=== PATIENT | male | born 1960 | race Caucasian/White ===

== ENCOUNTER 2023-05-23 13:05 | Emergency (ER) | payer MEDICARE, SELFPAY ==
--- NOTE | 2023-05-23 13:10 | ED.SKABFB ---
HPI - Skin/Abscess/Foreign Bdy General Chief complaint: Skin/Abscess/Foreign Body Stated complaint: Insect Bite Source: patient and RN notes reviewed History of Present Illness HPI narrative: 63-year-old male presents to urgent care complaints of a tick bite to his right groin. Patient states he 1st noticed this tick early Sunday morning and picked it off. Patient believes he may have gotten this tick on [place] Patient states this morning he noticed a red streak extending from the tick bite down his groin. Patient reports associated itching. Denies any pain. Denies any fevers, chills, or vomiting. Denies any chest pain or shortness of breath. Related Data Home Medications Medication Instructions Recorded Confirmed gabapentin 600 mg tablet 600 mg PO BID 05/23/23 05/23/23 lisinopril 10 1 tablet PO DAILY 05/23/23 05/23/23 mg-hydrochlorothiazide 12.5 mg tablet rosuvastatin 20 mg tablet 20 mg PO DAILY 05/23/23 05/23/23 Allergies Allergy/AdvReac Type Severity Reaction Status Date / Time No Known Allergies Allergy Unknown Verified 05/23/23 13:23 Review of Systems Review of Systems: CONSTITUTIONAL: Denies fever, chills, or sweats. EYES: Denies visual changes, redness, or discharge. ENT: Denies otalgia and sore throat CARDIOVASCULAR: Denies chest pain, palpitations, or edema. RESPIRATORY: Denies cough or dyspnea. GASTROINTESTINAL: Denies abdominal pain, nausea, vomiting, or diarrhea. GENITOURINARY: Denies dysuria or hematuria. SKIN: Red rash to right groin MUSCULOSKELETAL: Denies back pain, joint pain, or myalgia. NEUROLOGIC: Denies headache, numbness, or weakness. Pertinent positives per HPI. PMFSH Social History Social History Second hand tobacco smoke exposure: No Alcohol intake: current Comments At the time of my signature, I reviewed and agree with the nursing past medical, surgical, social, and family history. There is no relevant family history pertinent to the patient complaint. Exam Narrative: GENERAL: This is a well-nourished, well-developed patient, in no apparent distress. HEAD: normocephalic, atraumatic. EYES: Sclera clear/white. Vision is grossly intact. EARS: External ears normal, auditory canals clear and without drainage. Hearing grossly intact. NOSE: External nose normal with no obvious nasal discharge, nares without redness, no rhinorrhea. THROAT: Mucous membranes moist, posterior pharynx clear. NECK: Neck supple, non-tender without lymphadenopathy, masses or thyromegaly. CARDIOVASCULAR: Regular rate RESPIRATORY: No respiratory distress SKIN: ERythremic lesion extending from original tick bite to right groin. the streak of a lesion extends inferiorly, down the groin, approximately 5 cm in length. NEURO: awake, alert, and oriented to person, place and time. There were no obvious focal neurologic abnormalities. EXTREMITIES: No clubbing, cyanosis, or edema. No joint tenderness, effusion, or edema noted. BACK: Nontender without deformity or crepitus. No flank tenderness. Course Course Level of Care: Express Care Visit Vital Signs Vital signs: Vital Signs Temperature 98.3 F 05/23/23 13:20 Pulse Rate 99 05/23/23 13:20 Respiratory Rate 16 05/23/23 13:20 Blood Pressure 145/86 H 05/23/23 13:20 Pulse Oximetry 99 05/23/23 13:20 Oxygen Delivery Room Air 05/23/23 13:20 Temperature 98.3 F 05/23/23 13:24 Pulse Rate 99 05/23/23 13:24 Respiratory Rate 16 05/23/23 13:24 Blood Pressure 145/86 H 05/23/23 13:24 Pulse Oximetry 99 05/23/23 13:24 Oxygen Delivery Room Air 05/23/23 13:24 reviewed MDM - Skin/Abscess/Foreign Bdy MDM Narrative Medical decision making narrative: Take the antibiotics as directed. If you develop any new or worsening symptoms, go to the ER for further evaluation. Differential Diagnosis Differential diagnosis: Likely cellulitis, insect bites and contact dermatitis Critical Care Time
[2023-05-23 13:20] VITALS: BP 145/86; PULSE 99; RESP 16; TEMP 36.8; O2SAT 99
[2023-05-23 13:24] VITALS: BP 145/86; PULSE 99; RESP 16; TEMP 36.8; O2SAT 99
== END 2023-05-23 14:00 | disposition home or self-care (01) ==
PROVIDERS: Emergency Provider Nurse Practitioner Family
DX: S30.860A Insect bite (nonvenomous) of lower back and pelvis, initial encounter (principal); W57.XXXA Bitten or stung by nonvenomous insect and other nonvenomous arthropods, initial encounter; E78.00 Pure hypercholesterolemia, unspecified; I10 Essential (primary) hypertension; Z85.038 Personal history of other malignant neoplasm of large intestine; Z92.21 Personal history of antineoplastic chemotherapy; G62.9 Polyneuropathy, unspecified
CPT/HCPCS: 99203; G0463

== ENCOUNTER 2024-10-03 15:40 | Emergency (ER) | payer OTHER, SELFPAY ==
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
[2024-10-03 15:40] VITALS: BP 174/99; PULSE 102; RESP 20; TEMP 36.8; O2SAT 98
--- OUTSIDE RECORDS SUMMARY | 2024-10-03 15:55 | XMS_ITS | Clinical Summary ---
Author Organization [facility] Address [address], [address] [address] Phone Care Team Providers Care Gas Engine Operator Generators Name Role Phone Guillermo Miranda MD Primary Care Provider [phone] Jace Rose MD Unavailable [phone] Sp Leary MD Unavailable [phone] Allergies No known active allergies Medications rosuvastatin (CRESTOR) 20 MG Tablet TAKE 1 TABLET BY MOUTH ONCE DAILY 3 07/19/2019 Active lisinopril (PRINIVIL, ZESTRIL) 20 MG Tablet Take 20 mg by mouth every morning. Active Cholecalciferol (Vitamin D) 2000 UNIT Tablet Take by mouth. Active Omeprazole Magnesium 20 MG Tablet Delayed Response Take 20 mg by mouth daily. Active vitamin B complex (DEXFOL) Tablet Take 1 Tablet by mouth daily. 90 Tablet 3 03/14/2022 Active Cyanocobalamin (VITAMIN B-12 PO) Take by mouth. Active Ibuprofen (Advil) 200 MG Capsule Take by mouth. Active aspirin EC 81 MG Tablet Delayed Response Take 81 mg by mouth daily. Active gabapentin (NEURONTIN) 600 MG Tablet Take 1 Tablet by mouth 3 times daily. 270 Tablet 3 11/29/2023 Active Active Problems Problem Noted Date Diagnosed Date Enlarged prostate 08/10/2020 Elevated LFTs 02/02/2020 Drug-induced polyneuropathy 04/02/2019 High blood pressure 02/19/2019 Lung nodule 01/22/2019 Primary colon cancer with me tastasis to 7 or more regional lymph nodes (N2b) 11/13/2018 Liver lesion 11/13/2018 Adenocarcinoma, colon 10/30/2018 Status post right hemicolectomy 10/10/2018 Resolved Problems Problem Noted Date Diagnosed Date Resolved Date Chemotherapy induced diarrhea 02/19/2019 07/31/2019 Muscle cramping 01/22/2019 07/31/2019 Colonic mass 10/08/2018 03/10/2019 Encounters Date Type Department Care Team Description 10/01/2024 8:56 AM LOCK TECHNICIAN - 10/01/2024 11:59 PM LOCK TECHNICIAN Hospital Encounter [facility] Diagnostic Radiology [address] [place] [address] Guillermo Miranda MD Discharge Disposition: Discharged to home or Selfcare 10/01/2024 Travel 09/18/2024 Telephone [facility] [address] [place] [address] Brunilda Doshi APRN, SANITIZER 09/18/2024 Transcribe [facility] Sched[facility] [address] [place] [address] Guillermo Miranda MD Left shoulder pain, unspecified chronicity (Primary Dx) from Last 3 Months Family History Medical History Relation Name Comments Cancer Maternal Aunt colon Cancer Other P cousin colon Relation Name Status Comments Father Alive Maternal Aunt Mother Alive Other P cousin Alive Social History Tobacco Use Types Packs/Day Years Used Date Smoking Tobacco: Former Cigarettes 1 20 0 09/1998 - 09/2018 Smokeless Tobacco: Former Chew Quit: 1991 Tobacco Cessation:Counseling Given: Not Answered Comments:10/07/18 quit Alcohol Use Standard Drinks/Week Comments Not Currently 0 (1 standard drink = 0.6 oz pur e alcohol) rarely Sex and Gender Information Value Date Recorded Sex Assigned at Not on file Legal Sex Male 7:59 PM CDT Gender Identity Not on file Sexual Orientation Not on file Last Filed Vital Signs Vital Sign Reading Time Taken Comments Blood Pressure 140/84 11/29/2023 8:56 AM CDT Pulse 64 11/29/2023 8:56 AM CDT Temperature 36.3 ??C (97.3 ??F) 11/29/2023 8:56 AM CD T Respiratory Rate 16 11/29/2023 8:56 AM CDT Oxygen Saturation 98% 11/29/2023 8:56 AM CDT Inhaled Oxygen Concentration - - Weight 75.8 kg (167 lb 3.2 oz) 11/29/2023 8:56 A M CDT Height 172.7 cm (5' 8 ) 11/29/2023 8:56 AM CDT Body Mass Index 25.42 11/29/2023 8:56 AM CDT Plan of Treatment Upcoming Encounters Date Type Department Care Team (Late st Contact Info) Description 12/11/2024 9:15 AM CDT Office Visit [facility] [address] [place] [address] Jace Rose MD [address] [place] [address] Health Maintenance Due Date Last Done Comments Hepatitis C Virus (HCV) Screening 1962 Pneumococcal Immunization (50+ years) (1 of 2 - PCV) 1981 Zoster Immunization (1 of 2) 1981 Cologuard 2012 Immunochemical Fecal Occult Blood 2012 Lung Cancer Screening 2012 Influenza Immunization (#1) 2024 08/16/2023, 1 09/11/2021 SARS-COV-2 Immunization ( season) 2024 12/15/2021, 05/17/2021, 04/25/2021 Colonoscopy 01/10/2025 01/10/2023, 09/11, 09/28/2019, Additional history exists Colorectal Cancer Screening 01/10/2025 Respiratory Syncytial Virus (RSV) Immunization (Adult) (1 - 1-dose 75+ series) 2037 01/10/2023, 09/11, 09/28/2019, Additional history exists DTaP/Tdap/Td Immunization Discontinued 10/30/2018 TdaP Immunization Completed 10/30/2018 PSA Discussion Completed 02/26/2023, 11/30/2020 Hepatitis B Immunization Aged Out No longer eligible based on patient's age to complete this topic Meningococcal Immunization (ACWY) Aged Out No longer eligible based on patient's age to complete this topic Rotavirus Immunization Aged Out No lo nger eligible based on patient's age to complete this topic Medical Devices Implanted Type Area Manager Pulmonary Device Identifier Shelf Expiration Date Model / Serial / Lot Port Powerport Clearvue Isp Implantable W/8fr Folyurethane Catheter - [id number] Implanted:Qty: 1 on 11/08/2018 by Stuart Gonzalez MD at [facility] IMPLANT Right: Chest [id number] 01/08/2020 [id number] / [id number] / [id number] Procedures Procedure Name Priority Date/Time Associated Diagnosis Comments XR SHOULDER COMPLETE LEFT Routine 10/01/2024 9:09 AM LOCK TECHNICIAN Left shoulder pain, unspecified chronicity PSA SCREEN Routine 02/26/2023 10:37 AM CDT Enlarged prostate Encounter for screening for malignant neoplasm of prostate from Last 3 Months or Most Recently Relevant to Health Maintenance Results * XR SHOULDER COMPLETE LEFT (10/01/2024 9:09 AM LOCK TECHNICIAN) Anatomical Region Laterality Modality UPPER EXTREMITY, shoulder Left Digita l Radiography 10/01/2024 9:58 AM LOCK TECHNICIAN Impressions 10/01/2024 10:01 AM LOCK TECHNICIAN IMPRESSION: Degenerative changes of the left shoulder without definite evidence of acute displaced fracture or dislocation. Narrative 10/01/2024 10:01 AM LOCK TECHNICIAN EXAM DESCRIPTION: XR SHOULDER COMPLETE LEFT REASON FOR STUDY: chronic left shoulder pain for 1 year. pain worsening in the last 3 months. no injury. no surgery. ?? TECHNIQUE: 4 ??view(s) of the ??left shoulder COMPARISON: None FINDINGS: There is no definite evidence of acute displaced fracture or dislocation involving the left shoulder. ??There are degenerative changes of the left glenohumeral joint with joint space narrowing, sclerosis, and mild spurring. ??There are degenerative changes left acromioclavicular joint with joint space narrowing and mild spurring. ??The visualized soft tissues are grossly unremarkable. THIS IS AN ELECTRONICALLY VERIFIED FINAL REPORT 10/01/2024 9:58 AM - Electronically signed by ??Monroe Alberto D.O. PS: PS D: ??10/01/2024 9:58 AM T: ??10/01/2024 9:58 AM Report ID: [id number] Reading Location: ??[id number] Procedure Note Monroe Alberto DO - 10/01/2024 EXAM DESCRIPTION: XR SHOULDER COMPLETE LEFT REASON FOR STUDY: chronic left shoulder pain for 1 year. pain worsening in the last 3 months. no injury. no surgery. TECHNIQUE: 4 view(s) of the left shoulder COMPARISON: None FINDINGS: There is no definite evidence of acute displaced fracture or dislocation involving the left shoulder. There are degenerative changes of the left glenohumeral joint with joint space narrowing, sclerosis, and mild spurring. There are degenerative changes left acromioclavicular joint with joint space narrowing and mild spurring. The visualized soft tissues are grossly unremarkable. THIS IS AN ELECTRONICALLY VERIFIED FINAL REPORT 10/01/2024 9:58 AM - Electronically signed by Monroe Alberto D.O. PS: PS Report ID: [id number] Reading Location: [id number] IMPRESSION: Degenerative changes of the left shoulder without definite evidence of acute displaced fracture or dislocation. Guillermo Miranda MD IMG DIAGNOSTIC ORDERABLES Fin al Result * PSA SCREEN (02/26/2023 10:37 AM CDT) PSA SCREEN, TOTAL 0.86 <=4.00 ng/mL 02/26/2023 11:44 AM CDT [facility] Blood Venipuncture / Unknown 02/26/2023 10:37 AM CDT 02/26/2023 10:44 AM CDT Sp Leary MD CHEMISTRY ORDERABLES Fin al Result [facility] [address] [place] [address] from Last 3 Months or Most Recently Relevant to Health Maintenance Insurance MEDICARE [facility] Directives * Full Code (Latest Code Status on File) Date Activated Date Inactivated Comments 10/10/2018 2:13 PM 10/10/2018 6:11 PM CPR-Full Pan atment: FULL ARREST: Attempt Resuscitation/CPR wit intubation and mechanical ventilation. PRE-ARREST: Use entire range of life support measures to stabilize the patient. Care Teams Gas Engine Operator Generators Relationship Specialty Start Date End Date Guillermo Miranda MD [address] [place] [address] PCP - General Internal Medicine 10/30/18 Jace Rose MD [address] [place] [address] Consulting Physician Neurology 05/30/22 Sp Leary MD [address] [place] [address] Consulting Physician Medical Oncology 09/17/23
--- OUTSIDE RECORDS SUMMARY | 2024-10-03 15:55 | XMS_ITS | Encounter Summary ---
Author Organization [facility] Address [address] [place] [address] Phone Care Team Providers Care Press Operator Heavy Duty Name Role Phone Guillermo Miranda MD Primary Care Provider [phone] Jace Rose MD Unavailable [phone] Sp Leary MD Unavailable Reason for Referral * Radiology Services (Routine) - Closed Specialty Diagnoses / Procedures Referred By Iris t Referred To Contact Radiology Diagnoses Left shoulder pain, unspecified chronicity Procedures XR SHOULDER COMPLETE LEFT Guillermo Miranda MD [address] [place] [address] Phone: tel: fax: Referral ID Status Reason Start Date Expiration Date Visits Re quested Visits Authorized [id number] Closed 09/18/2024 1 1 AL MANAGER Reason for Visit * Radiology Services (Routine) - Closed Specialty Diagnoses / Procedures Referred By Iris gaviria Referred To Contact Radiology Diagnoses Left shoulder pain, unspecified chronicity Procedures XR SHOULDER COMPLETE LEFT Guillermo Miranda MD [address] [place] [address] Phone: tel: fax: Referral ID Status Reason Start Date Expiration Date Visits Re quested Visits Authorized [id number] Closed 09/18/2024 1 1 Encounter Details Date Type Department Care Team (Latest Contact Info) Description 10/01/2024 8:56 AM FLORAL MANAGER - 10/01/2024 11:59 PM FLORAL MANAGER [facility] Diagnostic Rad[facility] [address] [place] [address] Guillermo Miranda MD [address] [place] [address] Discharge Disposition: Discharged to home or Selfcare Social History Tobacco Use Types Packs/Day Years Used Date Smoking Tobacco: Former Cigarettes 1 20 0 09/1998 - 09/2018 Smokeless Tobacco: Former Chew Quit: 1991 Comments:10/07/18 quit Alcohol Use Standard Drinks/Week Comments Not Currently 0 (1 standard drink = 0.6 oz pur e alcohol) rarely Sex and Gender Information Value Date Recorded Sex Assigned at Not on file Legal Sex Male 7:59 PM CDT Gender Identity Not on file Sexual Orientation Not on file documented as of this encounter Medications at Time of Discharge aspirin EC 81 MG Tablet Delayed Response Take 81 mg by mouth daily. Cholecalciferol (Vitamin D) 2000 UNIT Tablet Take by mouth. Cyanocobalamin (VITAMIN B-12 PO) Take by mouth. gabapentin (NEURONTIN) 600 MG Tablet Take 1 Tablet by mouth 3 times daily. 270 Tablet 3 11/29/2023 Ibuprofen (Advil) 200 MG Capsule Take by mouth. lisinopril (PRINIVIL, ZESTRIL) 20 MG Tablet Take 20 mg by mouth every morning. Omeprazole Magnesium 20 MG Tablet Delayed Response Take 20 mg by mouth daily. rosuvastatin (CRESTOR) 20 MG Tablet TAKE 1 TABLET BY MOUTH ONCE DAILY 3 07/19/2019 vitamin B complex (DEXFOL) Tablet Take 1 Tablet by mouth daily. 90 Tablet 3 03/14/2022 documented as of this encounter Plan of Treatment Upcoming Encounters Date Type Department Care Team (Late st Contact Info) Description 12/11/2024 9:15 AM CDT Office Visit [facility] - Neurology [facility] [address] [place] [address] Jace Rose MD [address] [place] [address] documented as of this encounter Procedures Procedure Name Priority Date/Time Associated Diagnosis Comments XR SHOULDER COMPLETE LEFT Routine 10/01/2024 9:09 AM FLORAL MANAGER Left shoulder pain, unspecified chronicity documented in this encounter Results * XR SHOULDER COMPLETE LEFT (10/01/2024 9:09 AM FLORAL MANAGER) Anatomical Region Laterality Modality UPPER EXTREMITY, shoulder Left Digita l Radiography 10/01/2024 9:58 AM FLORAL MANAGER Impressions 10/01/2024 10:01 AM FLORAL MANAGER IMPRESSION: Degenerative changes of the left shoulder without definite evidence of acute displaced fracture or dislocation. Narrative 10/01/2024 10:01 AM FLORAL MANAGER EXAM DESCRIPTION: XR SHOULDER COMPLETE LEFT REASON [...] AM T: ??10/01/2024 9:58 AM Report ID: [id number] Reading Location: ??[id number] Procedure Note Monroe Alberto DO - 10/01/2024 [...] Monroe Alberto D.O. PS: PS Report ID: [id number] Reading Location: [place] [address] IMPRESSION: Degenerative changes of the left shoulder without definite evidence of acute displaced fracture or dislocation. Guillermo Miranda MD IMG DIAGNOSTIC ORDERABLES Fin al Result documented in this encounter Visit Diagnoses Diagnosis Left shoulder pain, unspecified chronicity documented in this encounter Care Teams Press Operator Heavy Duty Relationship Specialty Start Date End Date Guillermo Miranda MD [address] [address] PCP - General Internal Medicine 10/30/18 Jace Rose MD [address] [place] [address] Consulting Physician Neurology 05/30/22 Sp Leary MD [address] [place] [address] Consulting Physician Medical Oncology 09/17/23 documented as of this encounter
--- OUTSIDE RECORDS SUMMARY | 2024-10-03 15:55 | XMS_ITS | Encounter Summary ---
Author Organization [facility] Address [address] [facility] [place] [address] Phone Care Team Providers Care Salon Coordinator Name Role Phone Guillermo Miranda MD Primary Care Provider [phone] Jace Rose MD Unavailable [phone] Sp Leary MD Unavailable Encounter Details Date Type Department Care Team (Late st Contact Info) Description 09/18/2024 Telephone [facility] - [place] [address] [place] [address] Brunilda Doshi APRN, CELL TENDER HELPER [address] [place] [address] Social History Tobacco Use Types Packs/Day Years [...] on file documented as of this encounter Miscellaneous Notes * Telephone Encounter - Su Townsend - 09/18/2024 10:45 AM CST Patient received recall letter for colonoscopy. Please place order. [employer] documented in this encounter Plan of Treatment Upcoming Encounters Date Type Department Care Team (Late st Contact Info) Description 12/11/2024 9:15 AM CDT Office Visit [facility] - Neurology - [place] [address] [place] [address] Jace Rose MD [address] [place] [address] documented as of this encounter Visit Diagnoses Not on filedocumented in this encounter Care Teams Salon Coordinator Relationship Specialty Start Date End Date Guillermo Miranda MD [address] [place] [address] PCP - General Internal Medicine 10/30/18 Jace Rose MD [address] [place] [address] Consulting Physician Neurology 05/30/22 Sp Leary MD [address] [place] [address] Consulting Physician Medical Oncology 09/17/23 documented as of this encounter
--- OUTSIDE RECORDS SUMMARY | 2024-10-03 15:55 | XMS_ITS | Encounter Summary ---
Author Organization [facility] Address [address] [facility] [place] [address] Phone Care Team Providers Care Cannon Pinion Adjuster Name Role Phone Guillermo Miranda MD Primary Care Provider [phone] Jace Rose MD Unavailable [phone] Sp Leary MD Unavailable [phone] Reason for Visit * Reason Comments Medication Refill Encounter Details Date Type Department Care Team (Late st Contact Info) Description 08/22/2023 Refill [facility] [address] [place] [address] Jace Rose MD [address] [place] [address] Medication Refill Social History Tobacco Use Types Packs/Day Years [...] on file documented as of this encounter Plan of Treatment Upcoming Encounters Date Type Department Care Team (Late st Contact Info) Description 12/11/2024 9:15 AM CDT Office Visit [facility] [address] [place] [address] Jace Rose MD [address] [place] [address] documented as of this encounter Visit Diagnoses Not on filedocumented in this encounter Care Teams Cannon Pinion Adjuster Relationship Specialty Start Date End Date Guillermo Miranda MD [address] [place] [address] PCP - General Internal Medicine 10/30/18 Jace Rose MD [address] [place] [address] Consulting Physician Neurology 05/30/22 Sp Leary MD [address] [place] [address] Consulting Physician Medical Oncology 09/17/23 documented as of this encounter
--- OUTSIDE RECORDS SUMMARY | 2024-10-03 15:55 | XMS_ITS | Referral Summary ---
Author Organization [facility] Address [address] [address] Care Team Providers Care Various Exceptionalities Teacher Name Role Phone Unavailable Primary Care Provider Unavailabl e Source Comments [facility],non-owned Affiliates and Associated Physician Practices is amultiple site organization consisting of ambulatory clinics and hospital sitesin [place], [place], [place] and [place]. This disclosure is being madepursuant to the Care Everywhere program and may not contain all information available regarding this patient. Last updated 18.[facility] Social History Tobacco Use Types Packs/Day Years Used Date Smoking Tobacco: Never Assessed Sex and Gender Information Value Date Recorded Sex Assigned at Not on file Gender Identity Not on file Sexual Orientation Not on file Plan of Treatment Not on file
--- OUTSIDE RECORDS SUMMARY | 2024-10-03 15:55 | XMS_ITS | Data Portability ---
Author Organization [facility] [place] Address [address] [facility] [place] [address] Care Team Providers Care Superannuation Clerk Name Role Phone GUILLERMO ESPINO Primary Care Provider Assessment No assessment recorded. Plan of Treatment Reminders Order Date Submit Date Provider Last Modified By Organization Details Last Modified Time Details Appointments NEW PATIENT 30 2024 08:30A M BENSON [place], JIA-KUMAR Not available Not available Not available Lab CMP, serum or plasma 2022 023 [facility], [address] [facility] [address], [place], [address], 08/17/2023 03:08:45 CBC w/ auto diff 2022 023 [facility], [address] [facility] [address], [place], [address], 08/17/2023 03:08:46 influenza virus A + B + SARS-CoV- 2 (COVID19) Ag panel, rapid IA, upper respirato ry specimen 2022 023 nsuthan In-Office Order, Internal Use Only DO Not Attach Compendium DO Not Attach Compendium, Do Not Delete/merge, [id number] 07/27/2023 11:10:56 lipid panel, serum 2022 023 [facility], [address] [facility] [address], [place], [address], 08/17/2023 03:08:45 TSH, ultra-sen sitive, serum 2022 023 [facility], [address], [place], [address], 08/17/2023 03:08:49 HbA1c (hemoglob in A1c), blood 2022 023 [facility], [address], [place], [address], 08/17/2023 03:08:48 CMP, serum or plasma 2023 024 [facility], [address], [place], [address], 01/17/2024 03:08:29 CBC w/ auto diff 2023 024 [facility], [address], [place], [address], 01/17/2024 03:08:30 lipid panel, serum 2023 024 [facility], [address], [place], [address], 01/17/2024 03:08:29 carcinoem bryonic Ag, quant, serum or plasma 2024 025 [facility], [address], [place], [address], 10/02/2024 10:36:57 CBC w/ auto diff 2024 025 [facility], [address], [place], [address], 10/02/2024 10:37:02 lipid panel, serum 2024 025 [facility], [address], [place], [address], 10/02/2024 10:36:53 CMP, serum or plasma 2024 025 [facility], [address] [facility], [facility], [place], [address], 10/02/2024 10:36:55 TSH, ultra-sen sitive, serum 2024 025 [facility], [address] [facility], [facility] [address], [place], [address], 10/02/2024 10:37:00 HbA1c (hemoglob in A1c), blood 2024 025 [facility], [address] [facility], [facility] [address], [place], [address], 10/02/2024 10:36:58 Referral gastroent erologist referral 2024 025 [facility], [address] [facility] [address], [place], [address], 10/02/2024 16:19:58 Procedures None recorded. Surgeries None recorded. Imaging XR, shoulder 2024 025 [facility] Scheduling, [address] [place], [address], 10/01/2024 11:04:15 Medication Orders lisinopri l 10 mg-hydroc hlorothia zide 12.5 mg tablet 2024 025 [id number], [address], [place], [place], [id number], 09/18/2024 09:16:01 rosuvasta tin 20 mg tablet 2024 025 [facility], [address] [place] [address], [id number], 09/18/2024 16:15:49 ezetimibe 10 mg tablet 2024 025 [facility], [address] [place] [address], [id number], 09/18/2024 09:19:49 Patient TargetsNo targets recorded. Patient Instructions Encounter Date Encounter Id Patient Instructions Last Modified By Organization Details Last Modified Time 07/27/2023 [id number] upper respirator y infection (cold): care instructions nsuthan Not available 07/27/2023 15:59:16 f/u in 4 month nsuthan Not available 1 09/26/2022 11:11:08 11/23/2023 [id number] shoulder stretches: exercises nsuthan Not available 11/23/2023 10:19:19 f/u in 4 month nsuthan Not available 0 11/23/2023 10:19:33 03/21/2024 [id number] A healthy lifestyle: care instructions nsuthan Not available 03/21/2024 11:53:50 f/u in 6 month nsuthan Not available 0 03/21/2024 11:56:56 09/18/2024 [id number] shoulder stretches: exercises nsuthan Not available 09/18/2024 09:23:04 f/u in 1 month nsuthan Not available 0 09/18/2024 09:19:50 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 Primary adenocarcinoma of ascending colon Referring Physician: Shoshana Espino, Internal Medicine, Encounter Date: 09/18/2024 Results Created Date Observation Date Name Description Value Unit Range Abnormal Flag Note LastModifiedBy Organization Detail LastModifiedTime 07/27/20 23 07/27/2023 influ meghan virus A + B + SARS- CoV-2 (COVI D19) Ag panel , rapid IA, upper respi rator y speci men Flu A negati ve Not Available In-Office Order Internal Use Only DO Not Attach Compendium DO Not Attach Compendium, Do Not Delete/merge, [id number] 07/27/2023 10:58:56 07/27/20 23 07/27/2023 influ meghan virus A + B + SARS- CoV-2 (COVI D19) Ag panel , rapid IA, upper respi rator y speci men Flu B negati ve Not Available In-Office Order Internal Use Only DO Not Attach Compendium DO Not Attach Compendium, Do Not Delete/merge, [id number] 07/27/2023 10:58:56 07/27/2007/27/2023 influ meghan virus A + B + SARS- CoV-2 (COVI D19) Ag panel , rapid IA, upper respi rator y speci men Rapid SARS CoV 2 Ag, QL IA, respiratory specimen negati ve Not Available In-Office Order Internal Use Only DO Not Attach Compendium DO Not Attach Compendium, Do Not Delete/merge, [id number] 07/27/2023 10:58:56 08/16/20 23 08/17/2023 LIPID PANEL cholesterol, total 206 mg/dL 100-19 9 above high normal Not Available [facility] Department [address] [place] [address], [address], 08/17/2023 03:08:44 08/16/20 23 08/17/2023 LIPID PANEL triglyceride s 148 mg/dL 0-149 Not Available [facility] Department [address] [place] [address], [address], 08/17/2023 03:08:44 08/16/20 23 08/17/2023 LIPID PANEL HDL cholesterol 63 mg/dL 40-999 Not Available [facility] Department [address] [place] [address], [address], 08/17/2023 03:08:44 08/16/20 23 08/17/2023 LIPID PANEL VLDL cholesterol lui 30 mg/dL 5-40 Not Available [facility] Department [address] [place], [address], 08/17/2023 03:08:44 08/16/20 23 08/17/2023 LIPID PANEL LDL chol calc ([facility]) 136 mg/dL 0-99 above high normal Not Available [facility] Department [address] [place] [address], [address], 08/17/2023 03:08:44 08/16/20 23 08/17/2023 COMP. METAB OLIC PANEL (14) glucose 84 mg/dL 70-99 Not Available [facility] Department [address] [place] [address], [address], 08/17/2023 03:08:45 08/16/20 23 08/17/2023 COMP. METAB OLIC PANEL (14) BUN 11 mg/dL 8-27 Not Available [facility] Department [address] [place] [address], [address], 08/17/2023 03:08:45 08/16/20 23 08/17/2023 COMP. METAB OLIC PANEL (14) creatinine 0.78 mg/dL 0.76-1 .27 Not Available [facility] Department [address] [place] [address], [address], 08/17/2023 03:08:45 08/16/20 23 08/17/2023 COMP. METAB OLIC PANEL (14) eGFR 101 >=60 Units for eGFR value s are mL/mi n/1.7 3 The eGFR Calcu latio n has not been valid ated for patie nts under the age of 18. If test resul ts are displ ayed for a patie nt under the age of 18, disre selina that value . Not Available [facility] Department [address] [place] [address], [address], 08/17/2023 03:08:45 08/16/20 23 08/17/2023 COMP. METAB OLIC PANEL (14) BUN/creatini ne ratio 14 10-24 Not Available [facility] Department [address] [place] [address], [address], 08/17/2023 03:08:45 08/16/20 23 08/17/2023 COMP. METAB OLIC PANEL (14) sodium 139 mmol/ L 134-14 4 Not Available [facility] Department [address] [place] [address], [address], 08/17/2023 03:08:45 08/16/20 23 08/17/2023 COMP. METAB OLIC PANEL (14) potassium 4.9 mmol/ L 3.5-5. 2 Not Available [facility] Department [address] [place], [address], 08/17/2023 03:08:45 08/16/20 23 08/17/2023 COMP. METAB OLIC PANEL (14) chloride 98 mmol/ L 96-106 Not Available [facility] Department [address] [place], [address], 08/17/2023 03:08:45 08/16/20 23 08/17/2023 COMP. METAB OLIC PANEL (14) carbon dioxide, total 25 mmol/ L 20-29 Not Available [facility] Department [address] [place], [address], 08/17/2023 03:08:45 08/16/20 23 08/17/2023 COMP. METAB OLIC PANEL (14) calcium 10.0 mg/dL 8.6-10 .2 Not Available [facility] Department [address] [place], [address], 08/17/2023 03:08:45 08/16/20 23 08/17/2023 COMP. METAB OLIC PANEL (14) protein, total 6.8 g/dL 6.0-8. 5 Not Available [facility] Department [address] [place], [address], 08/17/2023 03:08:45 08/16/20 23 08/17/2023 COMP. METAB OLIC PANEL (14) albumin 4.3 g/dL 3.9-4. 9 Not Available [facility] Department [address] [place], [address], 08/17/2023 03:08:45 08/16/20 23 08/17/2023 COMP. METAB OLIC PANEL (14) globulin, total 2.5 g/dL 1.5-4. 5 Not Available [facility] Department [address] [place], [address], 08/17/2023 03:08:45 08/16/20 23 08/17/2023 COMP. METAB OLIC PANEL (14) A/G ratio 1.8 1.2-2. 2 Not Available [facility] Department [address] [place], [address], 08/17/2023 03:08:45 08/16/20 23 08/17/2023 COMP. METAB OLIC PANEL (14) bilirubin, total 0.5 mg/dL 0.0-1. 2 Not Available [facility] Department [address] [place], [address], 08/17/2023 03:08:45 08/16/20 23 08/17/2023 COMP. METAB OLIC PANEL (14) alkaline phosphatase 85 IU/L 44-121 Not Available [facility] Department [address] [place], [address], 08/17/2023 03:08:45 08/16/20 23 08/17/2023 COMP. METAB OLIC PANEL (14) AST (SGOT) 20 IU/L 0-40 Not Available [facility] Department [address] [place], [address], 08/17/2023 03:08:45 08/16/20 23 08/17/2023 COMP. METAB OLIC PANEL (14) ALT (SGPT) 19 IU/L 0-44 Not Available [facility] Department [address] [place], [address], 08/17/2023 03:08:45 08/16/20 23 08/17/2023 CBC WITH DIFFE RENTI AL/PL ATELE T WBC 7.4 x10e3 /uL 3.4-10 .8 Not Available [facility] Department [address] [place], [address], 08/17/2023 03:08:46 08/16/20 23 08/17/2023 CBC WITH DIFFE RENTI AL/PL ATELE T RBC 4.62 x10e6 /uL 4.14-5 .80 Not Available [facility] Department [address] [place], [address], 08/17/2023 03:08:46 08/16/20 23 08/17/2023 CBC WITH DIFFE RENTI AL/PL ATELE T hemoglobin 14.4 g/dL 13.0-1 7.7 Not Available [facility] Department [address] [place], [address], 08/17/2023 03:08:46 08/16/20 23 08/17/2023 CBC WITH DIFFE RENTI AL/PL ATELE T hematocrit 43.8 % 37.5-5 1.0 Not Available [facility] Department [address] [place], [address], 08/17/2023 03:08:46 08/16/20 23 08/17/2023 CBC WITH DIFFE RENTI AL/PL ATELE T MCV 95 fL 79-97 Not Available [facility] Department [address] [place], [address], 08/17/2023 03:08:46 08/16/20 23 08/17/2023 CBC WITH DIFFE RENTI AL/PL ATELE T MCH 31.2 pg 26.6-3 3.0 Not Available [facility] Department [address] [place], [address], 08/17/2023 03:08:46 08/16/20 23 08/17/2023 CBC WITH DIFFE RENTI AL/PL ATELE T MCHC 32.9 g/dL 31.5-3 5.7 Not Available [facility] [address] [place], [address], 08/17/2023 03:08:46 08/16/20 23 08/17/2023 CBC WITH DIFFE RENTI AL/PL ATELE T RDW 13.3 % 11.5-1 4.5 Not Available [facility] Department [address] [place], [address], 08/17/2023 03:08:46 08/16/20 23 08/17/2023 CBC WITH DIFFE RENTI AL/PL ATELE T platelets 286 x10e3 /uL 150-45 0 Not Available [facility] Department [address] [place], [address], 08/17/2023 03:08:46 08/16/20 23 08/17/2023 CBC WITH DIFFE RENTI AL/PL ATELE T neutrophils 65 % notest b. Not Available [facility] Department [address] [place], [address], 08/17/2023 03:08:46 08/16/20 23 08/17/2023 CBC WITH DIFFE RENTI AL/PL ATELE T lymphs 22 % notest b. Not Available [facility] Department [address] [place], [address], 08/17/2023 03:08:46 08/16/20 23 08/17/2023 CBC WITH DIFFE RENTI AL/PL ATELE T monocytes 11 % notest b. Not Available [facility] Department [address] [place], [address], 08/17/2023 03:08:46 08/16/20 23 08/17/2023 CBC WITH DIFFE RENTI AL/PL ATELE T eos 1 % notest b. Not Available [facility] Department [address] [place], [address], 08/17/2023 03:08:46 08/16/20 23 08/17/2023 CBC WITH DIFFE RENTI AL/PL ATELE T basos 0 % notest b. Not Available [facility] Department [address] [place], [address], 08/17/2023 03:08:46 08/16/20 23 08/17/2023 CBC WITH DIFFE RENTI AL/PL ATELE T neutrophils (absolute) 4.8 x10e3 /uL 1.4-7. 0 Not Available [facility] Department [address] [place], [address], 08/17/2023 03:08:46 08/16/20 23 08/17/2023 CBC WITH DIFFE RENTI AL/PL ATELE T lymphs (absolute) 1.6 x10e3 /uL 0.7-3. 1 Not Available [facility] [address] [place], [address], 08/17/2023 03:08:46 08/16/20 23 08/17/2023 CBC WITH DIFFE RENTI AL/PL ATELE T monocytes(ab solute) 0.8 x10e3 /uL 0.1-0. 9 Not Available [facility] [address] [place], [address], 08/17/2023 03:08:46 08/16/20 23 08/17/2023 CBC WITH DIFFE RENTI AL/PL ATELE T eos (absolute) 0.1 x10e3 /uL 0.0-0. 4 Not Available [facility] [address] [place], [address], 08/17/2023 03:08:46 08/16/20 23 08/17/2023 CBC WITH DIFFE RENTI AL/PL ATELE T baso (absolute) 0.0 x10e3 /uL 0.0-0. 2 Not Available [facility] [address] [place], [address], 08/17/2023 03:08:46 08/16/20 23 08/17/2023 CBC WITH DIFFE RENTI AL/PL ATELE T immature granulocytes 0.4 % notest b. Not Available [facility] Department [address] [place], [address], 08/17/2023 03:08:46 08/16/20 23 08/17/2023 CBC WITH DIFFE RENTI AL/PL ATELE T immature grans (abs) 0.0 x10e3 /uL 0.0-0. 1 Not Available [facility] Department [address], [place], [address], 08/17/2023 03:08:46 08/16/20 23 08/17/2023 CBC WITH DIFFE RENTI AL/PL ATELE T NRBC 0 % 0-0 Not Available [facility] Department [address], [place], [address], 08/17/2023 03:08:46 08/16/20 23 08/17/2023 HEMOG LOBIN A1C hemoglobin A1C 6.1 % 4.8-5. 6 above high normal Predi abete s: 5.7 - 6.4 Diabe tali: >6.4 Glyce leela contr ol for adult s with diabe tali: <7.0 Not Available [facility]) [address] [place], [address], 08/17/2023 03:08:48 08/16/2008/17/2023 TSH TSH 1.790 uIU/m L 0.450- 4.500 Not Available [facility]) [address] [place], [address], 08/17/2023 03:08:49 01/16/20 24 01/17/2024 LIPID PANEL cholesterol, total 175 mg/dL 100-19 9 Not Available [facility]) [address] [place], [address], 01/17/2024 03:08:29 01/16/20 24 01/17/2024 LIPID PANEL triglyceride s 94 mg/dL 0-149 Not Available [facility] [address] [place], [address], 01/17/2024 03:08:29 01/16/20 24 01/17/2024 LIPID PANEL HDL cholesterol 64 mg/dL >39 Not Available [facility] [address] [place], [address], 01/17/2024 03:08:29 01/16/20 24 01/17/2024 LIPID PANEL VLDL cholesterol lui 17 mg/dL 5-40 Not Available [facility]) [address] [place], [address], 01/17/2024 03:08:29 01/16/20 24 01/17/2024 LIPID PANEL LDL chol calc ([facility]) 94 mg/dL 0-99 Not Available [facility] [address] [place], [address], 01/17/2024 03:08:29 01/16/20 24 01/17/2024 COMP. METAB OLIC PANEL (14) glucose 86 mg/dL 70-99 Not Available [facility]) [address] [place], [address], 01/17/2024 03:08:29 01/16/20 24 01/17/2024 COMP. METAB OLIC PANEL (14) BUN 16 mg/dL 8-27 Not Available [facility]) [address] [place], [address], 01/17/2024 03:08:29 01/16/20 24 01/17/2024 COMP. METAB OLIC PANEL (14) creatinine 0.85 mg/dL 0.76-1 .27 Not Available [facility]) [address] [place], [address], 01/17/2024 03:08:29 01/16/20 24 01/17/2024 COMP. METAB OLIC PANEL (14) eGFR 99 mL/mi n/1.7 3 >59 Not Available [facility]) [address] [place], [address], 01/17/2024 03:08:29 01/16/20 24 01/17/2024 COMP. METAB OLIC PANEL (14) BUN/creatini ne ratio 19 10-24 Not Available [facility]) [address] [facility] [place], [address], 01/17/2024 03:08:29 01/16/20 24 01/17/2024 COMP. METAB OLIC PANEL (14) sodium 140 mmol/ L 134-14 4 Not Available [facility]) [address] [facility] [place], [address], 01/17/2024 03:08:29 01/16/20 24 01/17/2024 COMP. METAB OLIC PANEL (14) potassium 5.0 mmol/ L 3.5-5. 2 Not Available [facility]) [address] [facility] [place], [address], 01/17/2024 03:08:29 01/16/20 24 01/17/2024 COMP. METAB OLIC PANEL (14) chloride 100 mmol/ L 96-106 Not Available [facility] [address] [facility] [place], [address], 01/17/2024 03:08:29 01/16/20 24 01/17/2024 COMP. METAB OLIC PANEL (14) carbon dioxide, total 26 mmol/ L 20-29 Not Available [facility] [address] [facility] [place], [address], 01/17/2024 03:08:29 01/16/20 24 01/17/2024 COMP. METAB OLIC PANEL (14) calcium 9.5 mg/dL 8.6-10 .2 Not Available [facility]) [address] [facility] [place], [address], 01/17/2024 03:08:29 01/16/20 24 01/17/2024 COMP. METAB OLIC PANEL (14) protein, total 6.7 g/dL 6.0-8. 5 Not Available [facility] [address] [facility] [place], [address], 01/17/2024 03:08:29 01/16/20 24 01/17/2024 COMP. METAB OLIC PANEL (14) albumin 4.2 g/dL 3.9-4. 9 Not Available [facility]) [address] [place], [address], 01/17/2024 03:08:29 01/16/20 24 01/17/2024 COMP. METAB OLIC PANEL (14) globulin, total 2.5 g/dL 1.5-4. 5 Not Available [facility]) [address] [place], [address], 01/17/2024 03:08:29 01/16/20 24 01/17/2024 COMP. METAB OLIC PANEL (14) A/G ratio 1.7 1.2-2. 2 Not Available [facility]) [address] [place], [address], 01/17/2024 03:08:29 01/16/20 24 01/17/2024 COMP. METAB OLIC PANEL (14) bilirubin, total 0.4 mg/dL 0.0-1. 2 Not Available [facility] [address] [facility] [place] [address], 01/17/2024 03:08:29 01/16/20 24 01/17/2024 COMP. METAB OLIC PANEL (14) alkaline phosphatase 74 IU/L 44-121 Not Available [facility] [address] [place], [address], 01/17/2024 03:08:29 01/16/20 24 01/17/2024 COMP. METAB OLIC PANEL (14) AST (SGOT) 30 IU/L 0-40 Not Available [facility]) [address] [facility] [place], [address], 01/17/2024 03:08:29 01/16/20 24 01/17/2024 COMP. METAB OLIC PANEL (14) ALT (SGPT) 47 IU/L 0-44 above high normal Not Available [facility]) [address] [facility], [place], [address], 01/17/2024 03:08:29 01/16/20 24 01/16/2024 CBC WITH DIFFE RENTI AL/PL ATELE T WBC 6.1 x10e3 /uL 3.4-10 .8 Not Available [facility]) [address] [facility], [place], [address], 01/17/2024 03:08:30 01/16/20 24 01/16/2024 CBC WITH DIFFE RENTI AL/PL ATELE T RBC 4.44 x10e6 /uL 4.14-5 .80 Not Available [facility]) [address] [facility], [place], [address], 01/17/2024 03:08:30 01/16/20 24 01/16/2024 CBC WITH DIFFE RENTI AL/PL ATELE T hemoglobin 14.2 g/dL 13.0-1 7.7 Not Available [facility]) [address] [facility], [place], [address], 01/17/2024 03:08:30 01/16/20 24 01/16/2024 CBC WITH DIFFE RENTI AL/PL ATELE T hematocrit 41.8 % 37.5-5 1.0 Not Available [facility]) [address] [facility], [place], [address], 01/17/2024 03:08:30 01/16/20 24 01/16/2024 CBC WITH DIFFE RENTI AL/PL ATELE T MCV 94 fL 79-97 Not Available [facility]) [address] [facility], [place], [address], 01/17/2024 03:08:30 01/16/20 24 01/16/2024 CBC WITH DIFFE RENTI AL/PL ATELE T MCH 32.0 pg 26.6-3 3.0 Not Available [facility]) [address] [facility], [place], [address], 01/17/2024 03:08:30 01/16/20 24 01/16/2024 CBC WITH DIFFE RENTI AL/PL ATELE T MCHC 34.0 g/dL 31.5-3 5.7 Not Available [facility]) [address] [facility], [place], [address], 01/17/2024 03:08:30 01/16/20 24 01/16/2024 CBC WITH DIFFE RENTI AL/PL ATELE T RDW 12.9 % 11.6-1 5.4 Not Available [facility] [address] [facility], [place], [address], 01/17/2024 03:08:30 01/16/20 24 01/16/2024 CBC WITH DIFFE RENTI AL/PL ATELE T platelets 263 x10e3 /uL 150-45 0 Not Available [facility]) [address] [facility], [place], [address], 01/17/2024 03:08:30 01/16/20 24 01/16/2024 CBC WITH DIFFE RENTI AL/PL ATELE T neutrophils 58 % notest ab. Not Available [facility] [address] [facility], [place], [address], 01/17/2024 03:08:30 01/16/20 24 01/16/2024 CBC WITH DIFFE RENTI AL/PL ATELE T lymphs 28 % notest ab. Not Available [facility]) [address] [facility], [place], [address], 01/17/2024 03:08:30 01/16/20 24 01/16/2024 CBC WITH DIFFE RENTI AL/PL ATELE T monocytes 11 % notest ab. Not Available [facility]) [address] [facility], [place], [address], 01/17/2024 03:08:30 01/16/20 24 01/16/2024 CBC WITH DIFFE RENTI AL/PL ATELE T eos 2 % notest ab. Not Available [facility] [address] [facility], [place], [address], 01/17/2024 03:08:30 01/16/20 24 01/16/2024 CBC WITH DIFFE RENTI AL/PL ATELE T basos 1 % notest ab. Not Available [facility] [address] [facility], [place], [address], 01/17/2024 03:08:30 01/16/20 24 01/16/2024 CBC WITH DIFFE RENTI AL/PL ATELE T neutrophils (absolute) 3.6 x10e3 /uL 1.4-7. 0 Not Available [facility] [address] [facility], [place], [address], 01/17/2024 03:08:30 01/16/20 24 01/16/2024 CBC WITH DIFFE RENTI AL/PL ATELE T lymphs (absolute) 1.7 x10e3 /uL 0.7-3. 1 Not Available [facility]) [address] [facility], [place], [address], 01/17/2024 03:08:30 01/16/20 24 01/16/2024 CBC WITH DIFFE RENTI AL/PL ATELE T monocytes(ab solute) 0.6 x10e3 /uL 0.1-0. 9 Not Available [facility]) [address] [facility], [place], [address], 01/17/2024 03:08:30 01/16/20 24 01/16/2024 CBC WITH DIFFE RENTI AL/PL ATELE T eos (absolute) 0.1 x10e3 /uL 0.0-0. 4 Not Available [facility] ([facility]) [address] [place], [address], 01/17/2024 03:08:30 01/16/20 24 01/16/2024 CBC WITH DIFFE RENTI AL/PL ATELE T baso (absolute) 0.1 x10e3 /uL 0.0-0. 2 Not Available [facility] ([facility]) [address] [place], [address], 01/17/2024 03:08:30 01/16/20 24 01/16/2024 CBC WITH DIFFE RENTI AL/PL ATELE T immature granulocytes 0 % notest ab. Not Available [facility] ([facility]) [address] [facility], [place], [address], 01/17/2024 03:08:30 01/16/20 24 01/16/2024 CBC WITH DIFFE RENTI AL/PL ATELE T immature grans (abs) 0.0 x10e3 /uL 0.0-0. 1 Not Available [facility] ([facility]) [address] [facility], [place], [address], 01/17/2024 03:08:30 10/01/19 25 10/02/2024 LIPID PANEL cholesterol, total 166 mg/dL 100-19 9 Not Available [facility] ([facility]) [address] [place], [address], 10/02/2024 10:36:52 10/01/19 25 10/02/2024 LIPID PANEL triglyceride s 96 mg/dL 0-149 Not Available [facility] ([facility]) [address] [place], [address], 10/02/2024 10:36:52 10/01/19 25 10/02/2024 LIPID PANEL HDL cholesterol 52 mg/dL >39 Not Available [facility] [address] [facility] [place], [address], 10/02/2024 10:36:52 10/01/19 25 10/02/2024 LIPID PANEL VLDL cholesterol lui 18 mg/dL 5-40 Not Available [facility] ([facility]) [address] [place], [address], 10/02/2024 10:36:52 10/01/19 25 10/02/2024 LIPID PANEL LDL chol calc ([facility]) 96 mg/dL 0-99 Not Available [facility]) [address] [facility] [place], [address], 10/02/2024 10:36:52 10/01/19 25 10/02/2024 COMP. METAB OLIC PANEL (14) glucose 84 mg/dL 70-99 Not Available [facility] ([facility]) [address] [place], [address], 10/02/2024 10:36:55 10/01/19 25 10/02/2024 COMP. METAB OLIC PANEL (14) BUN 15 mg/dL 8-27 Not Available [facility] ([facility]) [address] [place], [address], 10/02/2024 10:36:55 10/01/19 25 10/02/2024 COMP. METAB OLIC PANEL (14) creatinine 0.85 mg/dL 0.76-1 .27 Not Available [facility] ([facility]) [address] [place], [address], 10/02/2024 10:36:55 10/01/19 25 10/02/2024 COMP. METAB OLIC PANEL (14) eGFR 98 mL/mi n/1.7 3 >59 Not Available [facility] ([facility]) [address] [place], [address], 10/02/2024 10:36:55 10/01/19 25 10/02/2024 COMP. METAB OLIC PANEL (14) BUN/creatini ne ratio 18 10-24 Not Available [facility] ([facility]) [address] [facility] [place], [address], 10/02/2024 10:36:55 10/01/19 25 10/02/2024 COMP. METAB OLIC PANEL (14) sodium 138 mmol/ L 134-14 4 Not Available [facility] ([facility]) [address] [facility] [place], [address], 10/02/2024 10:36:55 10/01/19 25 10/02/2024 COMP. METAB OLIC PANEL (14) potassium 4.5 mmol/ L 3.5-5. 2 Not Available [facility] ([facility]) [address] [place], [address], 10/02/2024 10:36:55 10/01/19 25 10/02/2024 COMP. METAB OLIC PANEL (14) chloride 99 mmol/ L 96-106 Not Available [facility] ([facility]) [address] [place], [address], 10/02/2024 10:36:55 10/01/19 25 10/02/2024 COMP. METAB OLIC PANEL (14) carbon dioxide, total 27 mmol/ L 20-29 Not Available [facility] ([facility]) [address] [place], [address], 10/02/2024 10:36:55 10/01/19 25 10/02/2024 COMP. METAB OLIC PANEL (14) calcium 9.8 mg/dL 8.6-10 .2 Not Available [facility] ([facility]) [address] [place], [address], 10/02/2024 10:36:55 10/01/19 25 10/02/2024 COMP. METAB OLIC PANEL (14) protein, total 7.2 g/dL 6.0-8. 5 Not Available [facility] ([facility]) [address] [facility] [place], [address], 10/02/2024 10:36:55 10/01/19 25 10/02/2024 COMP. METAB OLIC PANEL (14) albumin 4.6 g/dL 3.9-4. 9 Not Available [facility] ([facility]) [address] [facility] [place], [address], 10/02/2024 10:36:55 10/01/19 25 10/02/2024 COMP. METAB OLIC PANEL (14) globulin, total 2.6 g/dL 1.5-4. 5 Not Available [facility] ([facility]) [address] [facility] [place], [address], 10/02/2024 10:36:55 10/01/19 25 10/02/2024 COMP. METAB OLIC PANEL (14) bilirubin, total 0.4 mg/dL 0.0-1. 2 Not Available [facility] ([facility]) [address] [place], [address], 10/02/2024 10:36:55 10/01/19 25 10/02/2024 COMP. METAB OLIC PANEL (14) alkaline phosphatase 77 IU/L 44-121 Not Available [facility] ([facility]) [address] [place], [address], 10/02/2024 10:36:55 10/01/19 25 10/02/2024 COMP. METAB OLIC PANEL (14) AST (SGOT) 28 IU/L 0-40 Not Available [facility] ([facility]) [address] [place], [address], 10/02/2024 10:36:55 10/01/19 25 10/02/2024 COMP. METAB OLIC PANEL (14) ALT (SGPT) 32 IU/L 0-44 Not Available [facility] ([facility]) [address] [facility], [place], [address], 10/02/2024 10:36:55 10/01/19 25 10/02/2024 CEA (SERI AL MONIT OR) cea 1.6 NG/mL 0.0-4. 7 Nonsm okers <3.9 Smoke rs <5.6 Isha Diagn ostic s Elect isha milum inesc ence Immun oassa y (ECLI A) Value s obtai haresh with diffe rent assay metho ds or kits canno t be used inter reno eably . Resul ts canno t be inter prete d as absol [place] evide nce of the prese nce or absen ce of [place] aguirre se. Not Available [facility] ([facility]) [address] [facility], [place], [address], 10/02/2024 10:36:57 10/01/19 25 10/02/2024 CEA (SERI AL MONIT OR) pdf . Not Available [facility] ([facility]) [address] [facility], [place], [address], 10/02/2024 10:36:57 10/01/19 25 10/02/2024 HEMOG LOBIN A1C hemoglobin A1C 6.0 % 4.8-5. 6 above high normal Predi abete s: 5.7 - 6.4 Diabe tali: >6.4 Glyce leela contr ol for adult s with diabe tali: <7.0 Not Available [facility] ([facility]) [address] [facility], [place], [address], 10/02/2024 10:36:58 10/01/1910/02/2024 TSH TSH 2.040 uIU/m L 0.450- 4.500 Not Available [facility] ([facility]) [address] [place], [address], 10/02/2024 10:37:00 10/01/19 25 10/01/2024 CBC WITH DIFFE RENTI AL/PL ATELE T WBC 7.6 x10e3 /uL 3.4-10 .8 Not Available [facility] ([facility]) [address] [place], [address], 10/02/2024 10:37:01 10/01/19 25 10/01/2024 CBC WITH DIFFE RENTI AL/PL ATELE T RBC 4.83 x10e6 /uL 4.14-5 .80 Not Available [facility] ([facility]) [address] [facility], [place], [address], 10/02/2024 10:37:01 10/01/19 25 10/01/2024 CBC WITH DIFFE RENTI AL/PL ATELE T hemoglobin 15.0 g/dL 13.0-1 7.7 Not Available [facility] ([facility]) [address] [place], [address], 10/02/2024 10:37:01 10/01/19 25 10/01/2024 CBC WITH DIFFE RENTI AL/PL ATELE T hematocrit 45.6 % 37.5-5 1.0 Not Available [facility] ([facility]) [address] [place], [address], 10/02/2024 10:37:01 10/01/19 25 10/01/2024 CBC WITH DIFFE RENTI AL/PL ATELE T MCV 94 fL 79-97 Not Available [facility] ([facility]) [address] [place], [address], 10/02/2024 10:37:01 10/01/19 25 10/01/2024 CBC WITH DIFFE RENTI AL/PL ATELE T MCH 31.1 pg 26.6-3 3.0 Not Available [facility] ([facility]) [address] [place], [address], 10/02/2024 10:37:01 10/01/19 25 10/01/2024 CBC WITH DIFFE RENTI AL/PL ATELE T MCHC 32.9 g/dL 31.5-3 5.7 Not Available [facility] ([facility]) [address] [facility], [place], [address], 10/02/2024 10:37:01 10/01/19 25 10/01/2024 CBC WITH DIFFE RENTI AL/PL ATELE T RDW 12.4 % 11.6-1 5.4 Not Available [facility] ([facility]) [address] [facility], [place], [address], 10/02/2024 10:37:01 10/01/19 25 10/01/2024 CBC WITH DIFFE RENTI AL/PL ATELE T platelets 261 x10e3 /uL 150-45 0 Not Available [facility] ([facility]) [address] [facility], [place], [address], 10/02/2024 10:37:01 10/01/19 25 10/01/2024 CBC WITH DIFFE RENTI AL/PL ATELE T neutrophils 60 % notest ab. Not Available [facility] ([facility]) [address] [facility], [place], [address], 10/02/2024 10:37:01 10/01/19 25 10/01/2024 CBC WITH DIFFE RENTI AL/PL ATELE T lymphs 25 % notest ab. Not Available [facility] ([facility]) [address] [facility], [place], [address], 10/02/2024 10:37:01 10/01/19 25 10/01/2024 CBC WITH DIFFE RENTI AL/PL ATELE T monocytes 11 % notest ab. Not Available [facility] ([facility]) [address] [facility], [place], [address], 10/02/2024 10:37:01 10/01/19 25 10/01/2024 CBC WITH DIFFE RENTI AL/PL ATELE T eos 2 % notest ab. Not Available [facility] ([facility]) [address] [facility], [place], [address], 10/02/2024 10:37:01 10/01/19 25 10/01/2024 CBC WITH DIFFE RENTI AL/PL ATELE T basos 1 % notest ab. Not Available [facility] ([facility]) [address] [facility], [place], [address], 10/02/2024 10:37:01 10/01/19 25 10/01/2024 CBC WITH DIFFE RENTI AL/PL ATELE T neutrophils (absolute) 4.6 x10e3 /uL 1.4-7. 0 Not Available [facility] ([facility]) [address] [facility], [place], [address], 10/02/2024 10:37:01 10/01/19 25 10/01/2024 CBC WITH DIFFE RENTI AL/PL ATELE T lymphs (absolute) 1.9 x10e3 /uL 0.7-3. 1 Not Available [facility] ([facility]) [address] [facility], [place], [address], 10/02/2024 10:37:01 10/01/19 25 10/01/2024 CBC WITH DIFFE RENTI AL/PL ATELE T monocytes(ab solute) 0.9 x10e3 /uL 0.1-0. 9 Not Available [facility] ([facility]) [address] [facility], [place], [address], 10/02/2024 10:37:01 10/01/19 25 10/01/2024 CBC WITH DIFFE RENTI AL/PL ATELE T eos (absolute) 0.2 x10e3 /uL 0.0-0. 4 Not Available [facility] ([facility]) [address] [facility], [place], [address], 10/02/2024 10:37:01 10/01/19 25 10/01/2024 CBC WITH DIFFE RENTI AL/PL ATELE T baso (absolute) 0.1 x10e3 /uL 0.0-0. 2 Not Available [facility] ([facility]) [address] [facility], [place], [address], 10/02/2024 10:37:01 10/01/19 25 10/01/2024 CBC WITH DIFFE RENTI AL/PL ATELE T immature granulocytes 1 % notest ab. Not Available [facility] ([facility]) [address] [facility], [place], [address], 10/02/2024 10:37:01 10/01/19 25 10/01/2024 CBC WITH DIFFE RENTI AL/PL ATELE T immature grans (abs) 0.0 x10e3 /uL 0.0-0. 1 Not Available [facility] ([facility]) [address] [place], [address], 10/02/2024 10:37:01 10/01/19 25 10/01/2024 XR, shoul kermit No observ ation record ed. [facility] (Radiology) [address] [place] [address], [address], 10/03/2024 12:17:05 Result Notes None recorded. Problems Name Problem SNOMED Code Status Onset Date Resolution Date Notes Provider Name and Address Organization Details Recorded Time Malignant tumor of colon 589958995 Completed 201810/29/2018 s/p R/ Guillermo Espino MD Attn: Mark g,[address] [facility], [place], [address], [place] 9 10:34:03 Primary adenocarc inoma of ascending colon 80163520479 9101 Active 2018 stage III-s/p R/colec lesvia 09/28 & s/p FOLFOX chemo-s eeing GI /onco Guillermo Espino MD Attn: Mark g,[address] [facility], [place], [address], [place] 2 10:06:31 Essential hypertens ion 59510505 Active 2018 with upper normal K Guillermo Espino MD Attn: Mark bernardo,[address] [facility], [place], [address], [facility] - SIF 2 10:06:31 Hyperlipi demia 53978995 Active 2018 Guillermo Espino MD Attn: Mark bernardo,[address] [facility], [place], [address], [facility] - SIF 2 10:06:31 Neuropath y 105446421 Active 2019 Guillermo Espino MD Attn: Mark bernardo,[address] [facility], [place], [address], [facility] - SIF 2 10:06:31 Hyperglyc emia 10062751 Active 2021 Guillermo Espino MD Attn: Mark bernardo,[address] [facility], [place], [address], [facility] - SIF 2 10:06:31 Problem Notes None recorded. Procedures Surgical History Date Name Laterality Status Provider Name and Address Organization Details Recorded Time 0 Colonoscopy completed Arely Mullen [place] - [place] 10/08/2019 17:49:06 9 Colonoscopy with biopsy completed Guillermo Espino MD Attn: Accounting,[address] [facility], [place], [address], [facility] - SI 10/29/2018 10:41:11 repair of inguinal hernia completed Dominique Carcamo [place] - [place] 10/29/2018 10:19:32 Imaging Results Imaging Date Name Status LastModified by Organiz [facility] Details LastModified Time 10/01/2024 XR, shoulder completed [facility] (Radiology) [address] [place], [address], 10/03/2024 12:17:05 Procedure Notes None recorded. Medical Equipment None Reported. Allergies No known drug allergies Medications Name Sig Start Date Stop Date Status Note LastModified by Organization Details LastModified Time losartan 50 mg tablet TAKE 1 TABLET BY MOUTH ONCE DAILY active Not Available Not Available No t Available atorvasta tin 40 mg tablet Take 1 tablet every day by oral route. 06/19 completed aches Not Available Not Available Not Available gabapenti n 600 mg tablet active Not Available Not Available Not Available lisinopri l 20 mg-hydroc hlorothia zide 12.5 mg tablet Take 1 tablet every day by oral route. 04/26 completed pt to take 1/2 tab daily Not Available Not Available Not Available lisinopri l 20 mg tablet TAKE ONE BY MOUTH DAILY 10/18 completed Not Available Not Available Not Available cyanocoba sneha (vit B-12) 1,000 mcg tablet Take 1 tablet every day by oral route. 07/27 completed Not Available Not Available Not Available triamcino lone acetonide 0.1 % topical cream APPLY A THIN LAYER TO THE AFFECTED AREA(S) TOPICALL Y 2 TIMES PER DAY 04/27 completed Not Available Not Available Not Available hydrocort isone 2.5 % topical cream with perineal applicato r APPLY A THIN LAYER TO THE AFFECTED AREA(S) BY TOPICAL ROUTE 2-4 TIMESDAI LY 07/27 completed PRN Not Available Not Available Not Available meclizine 25 mg tablet Take 1 tablet twice a day by oral route. 04/26 completed Not Available Not Available Not Available doxycycli ne monohydra te 100 mg capsule 07/27 completed Not Available Not Available Not Available mupirocin calcium 2 % topical cream APPLY A SMALL AMOUNT TO THE AFFECTED AREA BY TOPICAL ROUTE 2 TIMES PER DAY FOR 10 DAYS 06/19 completed Not Available Not Available Not Available gabapenti n 300 mg capsule Take 2 capsules 3 times a day by oral route. 01/[address] - not taking Not Available Not Available Not Available mupirocin 2 % topical ointment APPLY A SMALL AMOUNT TO THE AFFECTED AREA BY TOPICAL ROUTE 2 TIMES PER DAY 10/18 completed Not Available Not Available Not Available lisinopri l 10 mg-hydroc hlorothia zide 12.5 mg tablet TAKE ONE TABLET BY MOUTH ONCE DAILY 2024 active Not Available Not Available Not Avai lable ezetimibe 10 mg tablet Take 1 tablet every day by oral route. 2024 active Not Available Not Available Not Avai lable rosuvasta tin 20 mg tablet TAKE ONE TABLET BY MOUTH DAILY 2024 active Not Available Not Available Not Avai lable Prilosec OTC 20 mg tablet,de layed release Take 1 tablet every day by oral route. active Not Available Not Available No t Available duloxetin e 60 mg capsule,d elayed release TAKE 1 CAPSULE BY MOUTH ONCE DAILY 08/24 completed Not Available Not Available Not Available pregabali n 75 mg capsule TAKE 1 CAPSULE BY MOUTH TWICE DAILY 12/22 completed Not Available Not Available Not Available aspirin 81mg po daily active Not Available Not Available No t Available Vitamin D active 2000 units Not Available Not Available Not Available COVID-19 At-Home Test kit TEST DIRECTED 01/16 completed Not Available Not Available Not Available Vitals Date Recorded Body height Provider Name an d Address Organization Details Last Updated DateTime 07/27/[address] [facility] 2022 10:52:37 Date Recorded Body mass index (BMI) Body weight Provider Name and Address Organization Details Last Updated DateTime 07/27/2023 24.8 kg/m2 42916.[address] [facility] 07/27/2023 10:54:40 Date Recorded Heart rate Provider Name an d Address Organization Details Last Updated DateTime 07/27/2023 86 /min Ewelina Hernandez Rich [facility] 2022 10:54:47 Date Recorded Respiratory rate Provider Name a nd Address Organization Details Last Updated DateTime 07/27/2023 16 /min LAURA Ruiz [facility] 07/27/2023 10:54:49 Date Recorded Body temperature Provider Name a nd Address Organization Details Last Updated DateTime 07/27/2023 97.8 [degF] Ewelina Hernandez Rich [facility] 07/27/2023 10:54:54 Date Recorded Oxygen saturation Oxygen saturation in Arterial blood by Pulse oximetry Provider Name and Address Organization Details Last Updated DateTime 07/27/2023 97 % 97 % LAURA Ruiz [facility] 07/27/2023 10:54:57 Date Recorded Body height Provider Name an d Address Organization Details Last Updated DateTime 11/23/2023 172.72 cm Ann Marie Brady MA [facility] 024 09:47:47 Date Recorded Body weight Provider Name an d Address Organization Details Last Updated DateTime 11/23/2023 [address]56.78 g Ann Marie Brady MA [facility] 024 09:49:46 Date Recorded Body mass index (BMI) Provider Name and Address Organization Details Last Updated DateTime 11/23/2023 25.9 kg/m2 Ann Marie Brady MA [facility] 024 09:49:48 Date Recorded Heart rate Provider Name an d Address Organization Details Last Updated DateTime 11/23/2023 76 /min Ann Marie Brady MA [facility] 024 09:49:57 Date Recorded Respiratory rate Provider Name a nd Address Organization Details Last Updated DateTime 11/23/2023 16 /min Ann Marie Brady MA [facility] 024 09:49:58 Date Recorded Body temperature Provider Name a nd Address Organization Details Last Updated DateTime 11/23/2023 98.6 [degF] Ann Marie Brady MA [facility] 2023 09:50:01 Date Recorded Oxygen saturation Oxygen saturation in Arterial blood by Pulse oximetry Provider Name and Address Organization Details Last Updated DateTime 11/23/2023 96 % 96 % Ann Marie Brady MA [facility] 11/23/2023 09:50:06 Date Recorded Body height Provider Name an d Address Organization Details Last Updated DateTime 03/21/2024 172.72 cm Dominique Carcamo MA [facility] 2023 11:26:51 Date Recorded Body mass index (BMI) Body weight Provider Name and Address Organization Details Last Updated DateTime 03/21/2024 26.3 kg/m2 92237.84 g Dominique Carcamo MA [facility] LAURA 03/21/2024 11:28:52 Date Recorded Heart rate Provider Name an d Address Organization Details Last Updated DateTime 03/21/2024 82 /min Dominique Carcamo MA [facility] 2023 11:28:58 Date Recorded Respiratory rate Provider Name a nd Address Organization Details Last Updated DateTime 03/21/2024 16 /min Dominique Carcamo MA [facility] 03/21/2024 11:29:00 Date Recorded Body temperature Provider Name a nd Address Organization Details Last Updated DateTime 03/21/2024 98.7 [degF] Dominique Carcamo [facility] 03/21/2024 11:29:05 Date Recorded Oxygen saturation Oxygen saturation in Arterial blood by Pulse oximetry Provider Name and Address Organization Details Last Updated DateTime 03/21/2024 98 % 98 % Dominique Carcamo MA [facility] 03/21/2024 11:29:10 Date Recorded Body height Provider Name an d Address Organization Details Last Updated DateTime 09/18/2024 [address] [facility] 2024 09:01:06 Date Recorded Body mass index (BMI) Body weight Provider Name and Address Organization Details Last Updated DateTime 09/18/2024 27.2 kg/m2 92687.[address] Hernandez [address] [facility] 09/18/2024 09:01:14 Date Recorded Respiratory rate Provider Name a nd Address Organization Details Last Updated DateTime 09/18/2024 16 /min Ewelina Hernandez Rich [facility] 09/18/2024 09:01:17 Date Recorded Body temperature Provider Name a nd Address Organization Details Last Updated DateTime 09/18/2024 97.5 [degF] Ewelina Hernandez Rich [facility] 09/18/2024 09:01:22 Date Recorded Oxygen saturation Oxygen saturation in Arterial blood by Pulse oximetry Provider Name and Address Organization Details Last Updated DateTime 09/18/2024 96 % 96 % LAURA Ruiz [facility] 09/18/2024 09:01:26 Date Recorded Heart rate Provider Name an d Address Organization Details Last Updated DateTime 09/18/2024 66 /min Ewelina Hernandez Rich [facility] SI 2024 09:04:10 Date Recorded Systolic blood pressure Diastolic blood pressure Provider Name and Address Organization Details Last Updated DateTime 07/27/2023 114 mm[Hg] 80 mm[Hg] Ewelina Hernandez Rich [facility] 07/27/2023 10:56:10 Date Recorded Systolic blood pressure Diastolic blood pressure Provider Name and Address Organization Details Last Updated DateTime 11/23/2023 130 mm[Hg] 76 mm[Hg] Ann Marie Brady MA [facility] SI 11/23/2023 09:51:00 Date Recorded Systolic blood pressure Diastolic blood pressure Provider Name and Address Organization Details Last Updated DateTime 03/21/2024 138 mm[Hg] 86 mm[Hg] Dominique Carcamo MA [facility] 03/21/2024 11:29:32 Date Recorded Systolic blood pressure Diastolic blood pressure Provider Name and Address Organization Details Last Updated DateTime 09/18/2024 172 mm[Hg] 102 mm[Hg] Ewelina Hernandez [facility] 09/18/2024 09:04:06 Social History Question Answer Notes LastModified by Organizat ion Details LastModified Time Tobacco Smoking Status Former Smoker [facility] 11:11:51 Do You Have An Advance Directive? No Information not available 10/29/2018 What Is Your Level Of Alcohol Consumption? Occasional Social Information not available 01/27/2019 Are You Blind Or Do You Have Difficulty Seeing? No Reading Glasses Information not available 10/18/2021 What Is Your Level Of Caffeine Consumption? Heavy 3 Cups Daily Information not available 07/27/2023 How Much Tobacco Do You Chew? None Quit 1990 Information not available 05/06/2019 In The 14 Days Before Symptom Onset, Have You Had Close Contact With A Laboratory-confi rmed COVID-19 While That Case Was Ill? No Information not available 04/15/2020 In The 14 Days Before Symptom Onset, Have You Had Close Contact With A Person Who Is Under Investigation For COVID-19 While That Person Was Ill? No [email or web address] Information not available 04/27/2021 Have You Been To An Area Known To Be High Risk For COVID-19? No Information not available 04/15/2020 Are You Currently Employed? No Information not available 12/22/2020 Are You Deaf Or Do You Have Serious Difficulty Hearing? Yes [place] Both Ears Lt Worse Than Rt Information not available 07/12/2022 What Type Of Diet Are You Following? REGULAR Information not available 10/29/2018 Which Illicit Or Recreational Drugs Have You Used? None Information not available 10/29/2018 Do You Or Have You Ever Used E-cigarettes Or Vape? Never Used Electronic Cigarettes Information not available 05/06/2019 Education 12 Information no t available 10/29/2018 What Is The Highest Grade Or Level Of School You Have Completed Or The Highest Degree You Have Received? 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 Yes Information not available 10/29/2018 Marital Status Informatio n not available 10/29/2018 What Was The Date Of Your Most Recent Tobacco Screening? 09/18/2024 Information not available 09/18/2024 What Is Your Relationship Status? Information not available 12/22/2020 Do You Use Your Seat Belt Or Car Seat Routinely? Yes Information not available 12/22/2020 Seat Belts Used Routinely Yes Information not available 10/29/2018 Smoke Alarm In Home Yes Information not available 10/29/2018 Do You Have Smoke And Carbon Monoxide Detectors In Your Home? Yes [email or web address] Information not available 04/27/2021 At What Age Did You Start Smoking Tobacco? 28 Information not available 01/27/2019 Do You Or Have You Ever Used Smokeless Tobacco? Former Smokeless Tobacco User Information not available 04/26/2022 How Much Tobacco Do You Smoke? 1 PPD Information not available 05/06/2019 General Stress Level Low Information not available 10/29/2018 Do You Feel Stressed (tense, Restless, Nervous, Or Anxious, Or Unable To Sleep At Night)? FY4891-3 Information not available 07/27/2023 Do You Use Any Illicit Or Recreational Drugs? Yes Marijuana Information not available 10/18/2021 Do You Use Sunscreen Routinely? No Information not available 10/29/2018 Has Tobacco Cessation Counseling Been Provided? Yes Information not available 04/11/2022 On What Date Was Tobacco Cessation Counseling Provided? 09/18/2024 Information not available 09/18/2024 Do You Or Have You Ever Used Any Other Forms Of Tobacco Or Nicotine? No Information not available 01/03/2022 Sex: Male Functional Status Question Answer Note LastModified by Organization D etails LastModified Time Are you able to care for yourself? Yes Information n ot available 12/22/2020 What is your exercise level? None Information not available 08/24/2020 Mental Status None recorded. Family History Relationship Description Onset Age of this Age Resolved Age Notes LastModified by Organization Details LastModified Time Paternal Grandmother Malignant tumor of ovary rreiter Not available 2018 10:16:16 Medical History Condition Response Coronary Artery Disease N Other N High Blood Pressure N Atrial Fibrillation N Kidney or Bladder Problems N Thyroid Problems N GI Problems N Depression N COPD N Blood Clots N Skin Problems N Anemia N Heart Attack ([place]) N Anxiety Disorder N Diabetes N Muscle, Joint, or Bone Problems N Seizures/Epilepsy N Acid Reflux (GERD) N Cancer Y Stroke N Asthma N Allergies N High Cholesterol N Hepatitis N Liver Disease N Headaches N Osteoporosis N Heart Failure N Immunizations Vaccine Type Date Status Note Provider Nam e and Address Organization Details Recorded Time COVID-19, mRNA, LNP-S, PF, 30 mcg/0.3 mL dose 1 completed STEPH Peterson, [place] - [facility] 10/18/2021 08:45:37 COVID-19, mRNA, LNP-S, PF, 30 mcg/0.3 mL dose 1 completed STEPH [place], [place] - [facility] 10/18/2021 08:46:04 Tdap 9 completed Not Available [employer] 09/27/2019 02:37:06 COVID-19, mRNA, LNP-S, PF, 30 mcg/0.3 mL dose, jany-sucrose 2 completed Ewelina Mary null, [place] - [facility] 12/15/2021 11:19:54 Influenza, split virus, quadrivalent, preservative 2 completed Guillermo Espino MD Attn: Accounting,[address] [facility], [place], [address], [facility] 07/12/2022 13:43:52 Influenza, split virus, quadrivalent, preservative 3 completed Arely Mullen MA null, [place] - [facility] 08/27/2023 13:14:58 Past Encounters Encounter ID Performer Location Encounter Start Date Encounter Closed Date Diagnosis/Indication Diagnosis SNOMED-CT Code Diagnosis ICD10 Code Diagnosis Note [id number] MD Piter Miller (Adult Med) [address] [place] [address] 10/29/2018 09:48:43 10/30/2018 08:58:35 Primary adenocarcinoma of ascending colon 9009498496 29276 C18.2 s/p R/colectom y 09/28-seein g GI /onco Administra tion of diphtheria, pertussis, and tetanus vaccine 077034300 Z23 Adult heal th examination 324695279 Z00.01 healthy diet and exercise discussed with pt [id number] MD Piter Miller (Adult Med) [address] [place] [address] 01/27/2019 11:03:00 01/28/2019 11:59:01 Primary adenocarcinoma of ascending colon [id number] 44669 C18.2 s/p R/colectom y 09/28-seein g GI /oncopt is on chemo Elevated blood-pressure reading without diagnosis of hypertension 251527338 R03.0 low salt dietpt wants to wait for bp med since pt is receiving chemo at present time Hyperlipidemia 66945370 E78.49 pt was on statin in the past and he did not tolerate per ptcheck labs and decidept to follow mediterran gisela diet [id number] [facility] [address] [place] [address] 05/06/2019 10:13:39 05/07/2019 09:04:53 Primary adenocarcinoma of ascending colon [id number] 86226 C18.2 s/p R/colectom y 09/28-seein g GI /oncopt completed chemo Hyperlipidemia 19747248 E78.49 pt was on statin in the past and he did not tolerate per ptcheck labs and decidept to follow mediterran gisela diet Essential hypertension 66799546 I10 low salt dietstart pt on losarton 50 mg daily Pustule 795800713 L08.9 on feetreturn to clinic if problem persists [id number] [facility] [address] [place] [address] 06/19/2019 08:28:57 06/20/2019 11:21:09 Essential hypertension 66127213 I10 low salt dietcontin ue lisinopril 20mg daily Hyperlipidemia 61998234 E78.49 pt has muscle aches with atorvastat inchange to rosuvastat inpt to follow mediterran gisela diet [id number] [facility] [address] [place] [address] 10/02/2019 08:34:55 10/06/2019 07:59:35 Essential hypertension 36707948 I10 low salt dietcontin ue lisinopril 20mg daily Hyperlipidemia 25874349 E78.49 pt has muscle aches with atorvastat inchange to rosuvastat inpt to follow mediterran gisela diet Neuropathy 470103903 G62 .9 of fingers and toespt is on Lyrica per onco .pt to take vit B12 [id number] [facility] [address] [place] [address] 04/15/2020 08:14:16 04/19/2020 15:43:08 Essential hypertension 17264325 I10 low salt dietcontin ue lisinopril 20mg daily Hyperlipidemia 51748793 E78.49 pt has muscle aches with atorvastat inchanged to rosuvastat inpt to follow mediterran gisela diet Primary adenocarcinoma of ascending colon 0352565281 04253 C18.2 s/p R/colectom y 09/28-seein g GI /oncopt completed chemo [id number] [facility] [address] [place] [address] 08/24/2020 08:14:25 08/25/2020 05:02:29 Essential hypertension 49779900 I10 low salt dietcontin ue lisinopril 20mg daily Hyperlipidemia 81180635 E78.49 pt has muscle aches with atorvastat inchanged to rosuvastat inpt to follow mediterran gisela diet Neuropathy 915654116 G62 .9 of fingers and toespt is on Lyrica per onco .pt to take vit B12 Primary adenocarcinoma of ascending colon 6161087442 25679 C18.2 s/p R/colectom y 09/28-seein g GI /oncopt completed chemo Pruritic rash 01955881 L 28.2 on L/foot / avoid scratching .pt to send pictures /return to clinic if problem continues [id number] Guillermo Espino MD [facility] (Adult Med) [address] [place] [address] 12/22/2020 08:07:27 12/23/2020 09:18:40 Essential hypertension 74151917 I10 low salt dietcontin ue lisinopril 20mg daily Hyperlipidemia 69201496 E78.49 pt has muscle aches with atorvastat inchanged to rosuvastat inpt to follow mediterran gisela diet Neuropathy 774830156 G62 .9 of fingers and toes pt is on gabapentin per onco /lyrica did not help per pt pt to take vit B12 Primary adenocarcinoma of ascending colon 4368592993 41214 C18.2 s/p R/colectom y 09/28-seein g GI /oncopt completed chemo [id number] [facility] [address] [place] [address] 04/27/2021 09:40:30 05/02/2021 10:57:10 Essential hypertension 01041517 I10 low salt dietcontin ue lisinopril 20mg daily Hyperlipidemia 54714152 E78.49 pt has muscle aches with atorvastat inchanged to rosuvastat inpt to follow mediterran gisela diet Primary adenocarcinoma of ascending colon 6290769283 28872 C18.2 s/p R/colectom y 09/28-seein g GI /oncopt completed chemo Skin lesion 93348414 L98 .9 on scalp and legs - pt to see derm for screening / pt to call if no improvemen t for antibiotic [id number] MD Piter Miller (Adult Med) [address] [place] [address] 10/18/2021 08:16:46 10/19/2021 08:39:09 Essential hypertension 25444133 I10 fair control-lo w salt dietchange lisinopril to lisinopril hct 20/12.5 mg daily ( pt has hyperkalem ia as well) Hyperlipidemia 23391144 E78.49 pt has muscle aches with atorvastat inchanged to rosuvastat inpt to follow Mediterran gisela diet Primary adenocarcinoma of ascending colon 4348706109 03882 C18.2 s/p R/colectom y 09/28-seein g GI /oncopt completed chemo Neuropathy 578139557 G62 .9 of fingers and toes pt is on gabapentin per onco /lyrica did not help per pt pt to take vit B12 [id number] Ewelina Dumas (Adult Med) [address] [place] [address] 12/15/2021 10:59:21 12/16/2021 06:53:09 Administration of SARS-CoV-2 antigen vaccine 057735301 Z23 [id number] MD Piter Miller (Adult Med) [address] [place] [address] 01/03/2022 09:00:40 01/04/2022 09:36:51 Essential hypertension 64757551 I10 fair control-lo w salt dietchange d lisinopril to lisinopril hct 20/12.5 mg daily ( pt has hyperkalem ia as well) Hyperlipidemia 62492361 E78.49 pt has muscle aches with atorvastat inchanged to rosuvastat inpt to follow Mediterran gisela diet Body mass index 25-29 - overweight 860484834 Z68.26 Hemorrhoids 46785792 K64 .9 - pt to f/u with GI [id number] MD Piter Miller (Adult Med) [address] [place] [address] 04/11/2022 11:58:01 04/12/2022 08:41:50 Essential hypertension 48895580 I10 with some low home bp-keep good hydrationp t to take 1/2 tab lisinopril hct 20/12.5 mg daily ( pt has hyperkalem ia as well) daily Dizziness 686835641 R42 possibly due to BPV with fluid in ear [id number] MD Piter Miller (Adult Med) [address] [place] [address] 04/26/2022 10:13:55 04/27/2022 10:26:22 Essential hypertension 45710158 I10 -stable-ke ep good hydrationp t to take lisinopril hct 10/12.5 mg daily ( pt has hyperkalem ia as well) daily Dizziness 723356511 R42 possibly due to BPV -improvedp t to d/c meclizine [id number] MD Piter Miller (Adult Med) [address] [place] [address] 07/12/2022 09:10:15 07/13/2022 08:04:37 Essential hypertension 47562934 I10 -stable-ke ep good hydrationp t to take lisinopril hct 10/12.5 mg daily ( pt has hyperkalem ia as well) daily Primary adenocarcinoma of ascending colon 9561532730 57712 C18.2 s/p R/colectom y 09/28-seein g GI /oncopt completed chemo Neuropathy 444031318 G62 .9 of fingers and toes pt is on gabapentin per onco /lyrica did not help per pt pt to take vit B12 Overweight 127605146 E66 .3 Hyperglycemia 08040047 R 73.9 Hyperlipidemia 53045508 E78.49 pt has muscle aches with atorvastat inchanged to rosuvastat inpt to follow Mediterran gisela diet Administra tion of influenza vaccine 71482781 Z23 [id number] [facility] [address] [place] [address] 01/16/2023 09:13:39 01/24/2023 09:52:29 Essential hypertension 65609314 I10 -stable-ke ep good hydrationp t to take lisinopril hct 10/12.5 mg daily ( pt has hyperkalem ia as well) daily Hyperlipidemia 02954200 E78.49 pt has muscle aches with atorvastat inchanged to rosuvastat inpt to follow Mediterran gisela diet Primary adenocarcinoma of ascending colon 2535848465 09590 C18.2 s/p R/colectom y 09/28-seein g GI /oncopt completed chemo Neuropathy 107900573 G62 .9 of fingers and toes pt is off of gabapentin /lyrica did not help per pt pt to take vit B12 [id number] [facility] [address] [place] [address] 07/27/2023 10:45:13 08/06/2023 14:41:28 Essential hypertension 82146187 I10 -stable-ke ep good hydrationp t to take lisinopril hct 10/12.5 mg daily ( pt has hyperkalem ia as well) daily Hyperlipidemia 66875787 E78.49 pt has muscle aches with atorvastat inchanged to rosuvastat inpt to follow Mediterran gisela diet Upper resp iratory infection 69972840 J06.9 with L/TMJ- supportive care with good hydration/ restpt to call if problem continuesp t to go to ER if sob /chest pain [id number] [facility] [address] [place] [address] 08/16/2023 09:20:13 08/28/2023 12:37:23 Administration of influenza vaccine 56356118 Z23 [id number] [facility] [address] [place] [address] 11/23/2023 09:29:48 11/24/2023 07:10:58 Essential hypertension 47782439 I10 -stable-ke ep good hydrationp t to take lisinopril hct 10/12.5 mg daily ( pt has hyperkalem ia as well) daily Hyperlipidemia 58860624 E78.49 pt has muscle aches with atorvastat inchanged to rosuvastat in and also pt is on ezetimibep t to follow Mediterran gisela diet Primary adenocarcinoma of ascending colon 9816828047 50247 C18.2 s/p R/colectom y 09/28-seein g GI /oncopt completed chemo - cancer free for 5 yrs and released from onco -pt is requesting CEA checked yearly- discussed about taking baby aspirin Pain of le ft shoulder joint 1441039703 0619628 M25.512 -pt to do exercise /heat therapy [id number] MD Piter Miller (Adult Med) [address] [place] [address] 03/21/2024 11:18:51 03/25/2024 16:22:06 Essential hypertension 67702574 I10 -stable-ke ep good hydrationp t to take lisinopril hct 10/12.5 mg daily ( pt has hyperkalem ia as well) daily Hyperlipidemia 33370723 E78.49 pt has muscle aches with atorvastat inchanged to rosuvastat in and also pt is on ezetimibep t to follow Mediterran gisela diet Overweight 149869099 E66 .3 [id number] MD Piter Miller (Adult Med) [address] [place] [address] 09/18/2024 08:42:42 09/19/2024 07:54:44 Essential hypertension 05359217 I10 -not well controlled due to noncomplia nt with med-keep good hydrationp t to take lisinopril hct 10/12.5 mg daily ( pt has hyperkalem ia as well) dailypt has bp cuff at home -call with bp recordings Hyperlipidemia 20442945 E78.49 pt has muscle aches with atorvastat inchanged to rosuvastat in and also pt is on ezetimibep t to follow Mediterran gisela diet Primary adenocarcinoma of ascending colon 5457033107 31098 C18.2 s/p R/colectom y 09/28-shannen bernardo GI /oncopt completed chemo - cancer free for 5 yrs and released from onco -pt is requesting CEA checked yearly Renewal of prescription 261982178 Z76.0 Pain of le ft shoulder joint 7168411579 9927763 M25.512 -pt to do exercise /heat therapypt can take otc tylenol prn Health Concerns Section Related Observation LastModified by Organization Detai ls LastModified Time None Recorded Concern Status LastModified by Organization Details LastModified Time None Recorded Advance Directives Directive N: Payers Encounter Date Sequence Insurance Name Policy Number Policy Watson Covered Member ID Watson Member ID Guarantor Name 07/27/2023 1 [facility] (MEDICARE REPLACEMENT/A DVANTAGE - PPO) [id number] [id number] [facility] 08/16/2023 [facility] (MEDICARE REPLACEMENT/A DVANTAGE - PPO) [id number] [id number] [facility] 11/23/2023 1 [facility] (MEDICARE REPLACEMENT/A DVANTAGE - PPO) [id number] [id number] [facility] 03/21/2024 1 [facility] (MEDICARE REPLACEMENT/A DVANTAGE - PPO) [id number] [id number] [facility] 09/18/2024 1 [facility] (MEDICARE REPLACEMENT/A DVANTAGE - PPO) [id number] [id number] [facility] Notes Date Note Type Note Provider Name and Address Organization Details Recorded Time 07/27/20 23 text/htm l Hypertension F/UReported bypatient.Associated Symptoms:no dizziness; no chest pain; no shortness of breath; no palpitations; no edema Lifestyle:regular exercise; limiting/avoiding salt Medications:taking medications as directed; no side effects from medicationUpper Respiratory SymptomsReported bypatient.Location:head (and also L/ear pain) Quality:congested Severity:moderate Duration:3 days Context:non-smoker;sick contact Associated Symptoms:no shortness of breath; no wheezing;fatigue;fever pt was diagnosed with colon ca -s/p R/hemicolectomy is here for f/u, pt completed chemo.pt said his haemorrhoid is acting up , denied constipation.pt is on gabapentin for neuropathy per onco . Guillermo Espino MD Attn: [facility],[address] [place], [address], [facility] 07/27/2023 16:00:28 11/23/19 24 text/htm l Hypertension F/UReported bypatient.Associated Symptoms:no dizziness; no chest pain; no shortness of breath; no palpitations; no edema Lifestyle:regular exercise; limiting/avoiding salt Medications:taking medications as directed; no side effects from medicationShoulderReported bypatient.Hand Dominance:right Location:left Quality:aching Severity:mild Context:atraumatic Associated Symptoms:no numbness; no swelling Prior Imaging:none pt was diagnosed with colon ca -s/p R/hemicolectomy is here for f/u, pt completed chemo.pt is on gabapentin for neuropathy per onco . Guillermo Espino MD Attn: [employer]ing,[address] [facility], [place], [address], [facility] 11/23/2023 13:38:20 03/21/20 24 text/htm l Hypertension F/UReported bypatient.Associated Symptoms:no dizziness; no chest pain; no shortness of breath; no palpitations; no edema Lifestyle:regular exercise; limiting/avoiding salt Medications:taking medications as directed; no side effects from medication pt was diagnosed with colon ca -s/p R/hemicolectomy is here for f/u, pt completed chemo.pt is on gabapentin for neuropathy per onco . Guillermo Espino MD Attn: [employer]ing,[address] [place], [address], [facility] 03/21/2024 11:58:27 09/18/19 25 text/htm l Hypertension F/UReported bypatient.Associated Symptoms:no dizziness; no chest pain; no shortness of breath; no palpitations; no edema Lifestyle:regular exercise; limiting/avoiding salt Medications:no side effects from medication;not taking medications as directedShoulderReported bypatient.Hand Dominance:right Location:left Quality:aching Severity:mild Context:atraumatic Associated Symptoms:no numbness; no swelling Prior Imaging:none pt was diagnosed with colon ca -s/p R/hemicolectomy is here for f/u, pt completed chemo.pt is on gabapentin for neuropathy per onco . Guillermo Espino MD Attn: Accounting,[address] [place] [address], [address], [facility] 09/18/2024 10:23:17
--- OUTSIDE RECORDS SUMMARY | 2024-10-03 15:55 | XMS_ITS ---
Author Organization [facility] Address [address] [facility], [address] [address] Phone Care Team Providers Care Wheelabrator Operator Name Role Phone Guillermo Miranda MD Primary Care Provider [phone] Jace Rose MD Unavailable [phone] Sp Leary MD Unavailable [phone] Active Problems Problem Noted Date Diagnosed Date Enlarged prostate 08/10/2020 Elevated LFTs 02/02/2020 Drug-induced polyneuropathy 04/02/2019 High blood pressure 02/19/2019 Lung nodule 01/22/2019 Primary colon cancer with me tastasis to 7 or more regional lymph nodes (N2b) 11/13/2018 Liver lesion 11/13/2018 Adenocarcinoma, colon 10/30/2018 Status post right hemicolectomy 10/10/2018 Current Treatment and Therapy Plans COLON - FOLFOX 6* Plan Start Date:11/12/2018 Plan Provider:Sp Leary MD Linked Problems Adenocarcinoma, colon (HCC) Treatment Medications 5-FU (EFUDEX) chemo infusion for home pumpfluorouracil (ADRUCIL)leucovorin (WELLCOVORIN) IVPBoxaliplatin (ELOXATIN) chemo infusion Past Treatment and Therapy Plans No past plan information found. Resolved Problems Problem Noted Date Diagnosed Date Resolved Date Chemotherapy induced diarrhea 02/19/2019 07/31/2019 Muscle cramping 01/22/2019 07/31/2019 Colonic mass 10/08/2018 03/10/2019
--- OUTSIDE RECORDS SUMMARY | 2024-10-03 15:55 | XMS_ITS | Encounter Summary ---
Author Organization [facility] Address [address] [facility] [place] [address] Phone Care Team Providers Care Watch Parts Grinder Name Role Phone Guillermo Miranda MD Primary Care Provider Jace Rose MD Unavailable [phone] Sp Leary MD Unavailable Reason for Visit * Reason Comments Medication Refill Encounter Details Date Type Department Care Team (Late st Contact Info) Description 06/07/2022 Refill [facility] - Neurology [facility] [address] [place] [address] Jace Rose MD [address] [place] [address] Medication Refill Social History Tobacco Use Types Packs/Day Years Used Date Smoking Tobacco: Former Cigarettes Q uit: 09/2018 Smokeless Tobacco: Former Chew Quit: 1991 Comments:10/07/18 quit Alcohol Use Standard Drinks/Week Comments Yes 2 (1 standard drink = 0.6 oz pur e alcohol) rarely Sex and Gender Information Value Date Recorded Sex Assigned at Not on file Legal Sex Male 7:59 PM CDT Gender Identity Not on file Sexual Orientation Not on file COVID-19 Exposure Response Date Recorded In the last 10 days, have yo u been in contact with someone who was confirmed or suspected to have Coronavirus/COVID-19? No / Unsure 05/30/2022 8:43 AM CDT documented as of this encounter Plan of Treatment Upcoming Encounters Date Type Department Care Team (Late st Contact Info) Description 12/11/2024 9:15 AM CDT Office Visit [facility] - Neurology [facility] [address] [place] [address] Jace Rose MD [address] [place] [address] documented as of this encounter Visit Diagnoses Not on filedocumented in this encounter Care Teams Watch Parts Grinder Relationship Specialty Start Date End Date Guillermo Miranda MD [address] [place], [place] [id number] PCP - General Internal Medicine 10/30/18 Jace Rose MD [address] [place] [address] Consulting Physician Neurology 05/30/22 Sp Leary MD [address] [place] [address] Consulting Physician Medical Oncology 09/17/23 documented as of this encounter
--- OUTSIDE RECORDS SUMMARY | 2024-10-03 15:55 | XMS_ITS | Encounter Summary ---
Author Organization [facility] Health Address [address] [facility] [place] [address] Care Team Providers Care Belt Measurer Name Role Phone Unavailable Primary Care Provider Unavailabl e Encounter Details Date Type Department Care Team (Late st Contact Info) Description 01/05/[address] [facility] [address] [place] [address] Julio Welsh MD [address] [place] [address] Social History Tobacco Use Types Packs/Day Years Used Date Smoking Tobacco: Never Assessed Sex and Gender Information Value Date Recorded Sex Assigned at Not on file Gender Identity Not on file Sexual Orientation Not on file documented as of this encounter Plan of Treatment Not on file documented as of this encounter Procedures Procedure Name Priority Date/Time Associated Diagnosis Comments DERMATOPATHOLOGY Routine 01/03/2023 3:33 AM CDT documented in this encounter Results * DERMATOPATHOLOGY (01/03/2023 3:33 AM CDT) Case Report Dermatopathology Report ? Case: [id number] ? Authorizing Provider: ??Julio Welsh MD ?Collected: ? 01/03/2023 03:33 AM ? Ordering Location: ? [facility] ?Received: ?01/05/2023 06:12 AM ? Pathologist: ? Sara Reyes MD ? Specimen: ?Skin, left upper abd ? 3 12:20 PM CDT DERMATOPATHOLOGY LABORATORY Final Diagnosis Specimen A. SKIN, left upper abd: COMPOUND MELANOCYTIC NEVUS, IRRITATED AND INFLAMED (D22.5) PRESENT AT MARGIN (see comment) 3 12:20 PM T DERMATOPATHOLOGY LABORATORY Clinical History Nevus vs. MM. Path# [id number] 3 12:20 PM CDT DERMATOPATHOLOGY LABORATORY Gross Description Specimen A: Received is one formalin filled container labeled with the patient's name and designated left upper abd. The specimen consists of a shave biopsy measuring 6x5x1 mm. Jar 0. 3 12:20 PM CDT DERMATOPATHOLOGY LABORATORY Microscopic Description Specimen A. SKIN, left upper abd: There is melanin pigment in the stratum corneum. There are nests of melanocytes at the dermal-epidermal junction and within the dermis. Inflammatory cells are present within the nevus. This lesion is present at the margin of the specimen. COMMENT: The histopathologic findings of the portion of the lesion sampled are reassuring. However, as this lesion is present at the margins of the specimen, clinicopathological correlation is recommended as to the nature of the remaining lesion. 3 12:20 PM T DERMATOPATHOLOGY LABORATORY Disclaimer An external and internal positive and negative controls are appropriate for the histochemical, immunohistochemical and immunofluorescence stain(s) in this case (if any), except where stated explicitly. The performance characteristics of the stain(s) cited in this report were developed and its performance characteristic determined by the Dermatopathology Laboratory at [facility], directed by Dr. Amarilis Mascorro. These tests need not be, and therefore are not, approved by the [place] Food and Drug Administration. The tests are used for clinical purposes. Billing Codes Specimen Charges Stain Charges 93154 1 3 12:20 PM CDT DERMATOPATHOLOGY LABORATORY Embedded Images 3 12:20 PM CDT DERMATOPATHOLOGY LABORATORY Pathology/Cytolo gy TISSUE SPECIMEN FROM SKIN / Unknown 01/03/2023 3:33 AM CDT 01/05/2023 6:12 AM CDT Julio Welsh MD LAB - PATHOLOGY/CYTO LOGY ORDERABLES DERMATOPATHOLOGY LABORATORY [facility] - Department of Dermatology [address], [address] [phone] documented in this encounter Visit Diagnoses Not on filedocumented in this encounter
--- OUTSIDE RECORDS SUMMARY | 2024-10-03 15:55 | XMS_ITS | Clinical Summary ---
Author Organization [facility] Address [address] [place] [address]. [place] [address] [place] [address] Care Team Providers Care Director Instructional Material Name Role Phone Unavailable Primary Care Provider Unavailabl e Social History Tobacco Use Types Packs/Day Years Used Date Smoking Tobacco: Never Assessed Sex and Gender Information Value Date Recorded Sex Assigned at Not on file Legal Sex Male 4:58 PM CDT Gender Identity Not on file Sexual Orientation Not on file Plan of Treatment Health Maintenance Due Date Last Done Comments Colorectal Cancer Screening Colonoscopy (10 Years) 1962 Annual Physical 1965 Hepatitis C 1980 DTaP, Tdap and Td Vaccines ( 1 - Tdap) 1981 Zoster Vaccines (1 of 2) 2012 COVID-19 Vaccine ( - 2023-2 5 season) 2024 Influenza Adult (#1) 2024 RSV Immunization or 60+ Years (1 - 1-dose 75+ series) 2037 Meningococcal B Vaccine Aged Out No l onger eligible based on patient's age to complete this topic Meningococcal Vaccine Aged Out No brigido guero eligible based on patient's age to complete this topic Pneumococcal Vaccine: Pediat rics (0 to 5 Years) and At-Risk Patients (6 to 64 Years) Aged Out No longer eligible b ased on patient's age to complete this topic RSV Immunizations Under 20 Months Aged Out No longer eligible based on patient's age to complete this topic
--- OUTSIDE RECORDS SUMMARY | 2024-10-03 15:55 | XMS_ITS | Encounter Summary ---
Author Organization [facility] Address [address] [facility] [place] [place] [address] Phone Care Team Providers Care Commercial Carpenter Name Role Phone Guillermo Miranda MD Primary Care Provider Jace Rose MD Unavailable [phone] Sp Leary MD Unavailable [phone] Reason for Visit * Reason Comments Medication Refill Encounter Details Date Type Department Care Team (Late st Contact Info) Description 08/17/2023 Refill [facility] [address] [place] [id number] Jace Rose MD [address] [place] [address] Medication Refill Social History Tobacco [...] Visit [facility] - Neurology [facility] [address] [place] [address] Jace Rose MD [address] [place] [address] documented as of this encounter Visit Diagnoses Not on filedocumented in this encounter Care Teams Commercial Carpenter Relationship Specialty Start Date End Date Guillermo Miranda MD [address] [place] [address] PCP - General Internal Medicine 10/30/18 Jace Rose MD [address] [place] [address] Consulting Physician Neurology 05/30/22 Sp Leary MD [address] [place] [address] Consulting Physician Medical Oncology 09/17/23 documented as of this encounter
--- OUTSIDE RECORDS SUMMARY | 2024-10-03 15:55 | XMS_ITS | Patient Health Summary ---
Author Organization [facility] Address [address] [place] [address] Care Team Providers Care Shipping Receiving Manager Name Role Phone Unavailable Primary Care Provider Unavailabl e Note from [facility],non-owned Affiliates and Associated Physician Practices is amultiple site organization consisting of ambulatory clinics and hospital sitesin [place], [place], [place] and [place]. This disclosure is being madepursuant to the Care Everywhere program and may not contain all information available regarding this patient. Last updated 18.[facility] Social History Tobacco Use Types Packs/Day Years Used Date Smoking Tobacco: Never Assessed Sex and Gender Information Value Date Recorded Sex Assigned at Not on file Gender Identity Not on file Sexual Orientation Not on file Procedures * DERMATOPATHOLOGY(Performed 01/03/2023) Results * DERMATOPATHOLOGY (01/03/2023 3:33 AM CDT) Case Report Dermatopathology Report ? Case: [id number] ? Authorizing Provider: ??Julio Welsh MD ?Collected: ? 01/03/2023 03:33 AM ? Ordering Location: ? [facility] ?Received: ?01/05/2023 06:12 AM ? Pathologist: ? Sara Reyes MD ? Specimen: ?Skin, left upper abd ? 3 12:20 PM [facility] DERMATOPATHOLOGY LABORATORY Final Diagnosis Specimen A. SKIN, left upper abd: COMPOUND MELANOCYTIC NEVUS, IRRITATED AND INFLAMED (D22.5) PRESENT AT MARGIN (see comment) 12:20 PM [facility] DERMATOPATHOLOGY LABORATORY Clinical History Nevus vs. MM. Path# [id number] 12:20 PM [facility] DERMATOPATHOLOGY LABORATORY Gross Description Specimen A: Received is one formalin filled container labeled with the patient's name and designated left upper abd. The specimen consists of a shave biopsy measuring 6x5x1 mm. Jar 0. 12:20 PM [facility] DERMATOPATHOLOGY LABORATORY Microscopic Description Specimen A. SKIN, [...] to the nature of the remaining lesion. 12:20 PM [facility] DERMATOPATHOLOGY LABORATORY Disclaimer An external and internal positive and negative controls are appropriate for the histochemical, immunohistochemical and immunofluorescence stain(s) in this case (if any), except where stated explicitly. The performance characteristics of the stain(s) cited in this report were developed and its performance characteristic determined by the Dermatopathology Laboratory at [facility], directed by Dr. Amarilis Mascorro. These tests need not be, and therefore are not, approved by the [place] Food and Drug Administration. The tests are used for clinical purposes. Billing Codes Specimen Charges Stain Charges 00390 1 3 12:20 PM CDT DERMATOPATHOLOGY LABORATORY Embedded Images 3 12:20 PM CDT DERMATOPATHOLOGY LABORATORY Pathology/Cytolo gy TISSUE SPECIMEN FROM SKIN / Unknown 01/03/2023 3:33 AM CDT 01/05/2023 6:12 AM CDT Julio Welsh MD LAB - PATHOLOGY/CYTO LOGY ORDERABLES DERMATOPATHOLOGY LABORATORY [facility] - Department of Dermatology [facility] Medicine [address] [place] [address], [address] [phone]
--- OUTSIDE RECORDS SUMMARY | 2024-10-03 15:55 | XMS_ITS | Clinical Summary ---
Author Organization [facility] Address [address] [place] [address] Care Team Providers Care Rental Clerk Tool And Equipment Name Role Phone Unavailable Primary Care Provider Unavailabl e Source Comments [facility],non-owned Affiliates and Associated Physician Practices is amultiple site organization consisting of ambulatory clinics and hospital sitesin [place], [place], [place] and [place]. This disclosure is being madepursuant to the Care Everywhere program and may not contain all information available regarding this patient. Last updated 18.[facility] [employer] Social History Tobacco Use Types Packs/Day Years Used Date Smoking Tobacco: Never Assessed Sex and Gender Information Value Date Recorded Sex Assigned at Not on file Gender Identity Not on file Sexual Orientation Not on file Plan of Treatment Health Maintenance Due Date Last Done Comments COLOGUARD (AGES 45-75) - COL ON CA SCREENING 1962 COLON MONITORING 1962 COLONOSCOPY - COLON CA SCREENING 1962 CT COLONOGRAPHY - COLON CA SCREENING 1962 Colorectal Cancer Screening 1962 FIT - COLON CA SCREENING 1962 FLEX SIG - COLON CA SCREENING 1962 LIPID TESTING 1962 HIV SCREENING 1977 HEPATITIS C SCREENING 04/12/1980 DTAP/TDAP/TD VACCINES (1 - Tdap) 1981 PNEUMOCOCCAL VACCINE 50+ (1 of 1 - PCV) 2012 ZOSTER VACCINE (1 of 2) 2012 COVID-19 VACCINE ( - 2023-2 5 season) 2024 INFLUENZA VACCINE (#1) 2024 DEPRESSION SCREENING 09/10/2024 MEDICARE AWV ? CALENDAR YEAR 2024 Respiratory Syncytial Virus (RSV) Vaccine Pt: or over 60 yrs (1 - 1-dose 75+ series) 2037 HEPATITIS B VACCINE Aged Out No longe r eligible based on patient's age to complete this topic HIB VACCINE Aged Out No longer eligi ble based on patient's age to complete this topic HPV VACCINE Aged Out No longer eligi ble based on patient's age to complete this topic MENINGOCOCCAL (Group B) VACCINE Aged Out No longer eligible based on patient's age to complete this topic MENINGOCOCCAL VACCINE Aged Out No brigido guero eligible based on patient's age to complete this topic PNEUMOCOCCAL VACCINE Aged Out No long er eligible based on patient's age to complete this topic
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
--- OUTSIDE RECORDS SUMMARY | 2024-10-03 16:21 | XMS_ITS | Encounter Summary ---
Author Organization [facility] Address [address] [facility] [place] [address] Phone Care Team Providers Care K 12 School Professional Name Role Phone Guillermo Miranda MD Primary Care Provider Jace Rose MD Unavailable [phone] Sp Leary MD Unavailable [phone] Reason for Visit * Reason Comments Medication Refill Encounter Details Date Type Department Care Team (Late st Contact Info) Description 08/22/2023 Refill [facility] [address] [place] [address] Jace Rose MD [address] [place] [address] Medication Refill Social History Tobacco [...] Visit [facility] - Neurology [facility] [address] [place] [address] Jace Rose MD [address] [place] [address] documented as of this encounter Visit Diagnoses Not on filedocumented in this encounter Care Teams K [employer] School Professional Relationship Specialty Start Date End Date Guillermo Miranda MD [address] [place] [address] PCP - General Internal Medicine 10/30/18 Jace Rose MD [address] [place] [address] Consulting Physician Neurology 05/30/22 Sp Leary MD [address] [place] [address] Consulting Physician Medical Oncology 09/17/23 documented as of this encounter
--- OUTSIDE RECORDS SUMMARY | 2024-10-03 16:21 | XMS_ITS | Encounter Summary ---
Author Organization [facility] Address [address] [facility] [place] [address] Phone Care Team Providers Care Internal Auditor Name Role Phone Guillermo Miranda MD Primary Care Provider [phone] Jace Rose MD Unavailable [phone] Sp Leary MD Unavailable [phone] Encounter Details Date Type Department Care Team (Late st Contact Info) Description 09/18/2024 Telephone [facility] - Gastroenterology - [place] [address] [place] [address] Brunilda Doshi APRN, LUBRICATION EQUIPMENT SERVICER [address] [place] [address] Social History Tobacco Use Types [...] recall letter for colonoscopy. Please place order. ING RESIDENT documented in this encounter Plan of Treatment Upcoming Encounters Date Type Department Care Team (Late st Contact Info) Description 12/11/2024 9:15 AM CDT Office Visit [facility] - [facility]rology - [place] [address] [place] [address] Jace Rose MD [address] [place] [address] documented as of this encounter Visit Diagnoses Not on filedocumented in this encounter Care Teams Internal Auditor Relationship Specialty Start Date End Date Guillermo Miranda MD [address] [place] [address] PCP - General Internal Medicine 10/30/18 Jace Rose MD [address] [place] [address] Consulting Physician Neurology 05/30/22 Sp Leary MD [address] [place] [address] Consulting Physician Medical Oncology 09/17/23 documented as of this encounter
--- OUTSIDE RECORDS SUMMARY | 2024-10-03 16:21 | XMS_ITS | Encounter Summary ---
Author Organization [facility] Address [address] [place] [address] Phone Care Team Providers Care Sales Route Driver Helper Name Role Phone Guillermo Miranda MD Primary Care Provider [phone] Jace Rose MD Unavailable [phone] Sp Leary MD Unavailable [phone] Reason for Referral * Radiology Services (Routine) - Closed Specialty Diagnoses / Procedures Referred By Iris t Referred To Contact Radiology Diagnoses Left shoulder pain, unspecified chronicity Procedures XR SHOULDER COMPLETE LEFT Guillermo Miranda MD [address] [place] [address] Phone: tel: fax: Referral ID Status Reason Start Date Expiration Date Visits Re quested Visits Authorized [id number] Closed 09/18/2024 1 1 ENT SERVICE SPECIALIST Reason for Visit * Radiology Services (Routine) - Closed Specialty Diagnoses / Procedures Referred By Iris gaviria Referred To Contact Radiology Diagnoses Left shoulder pain, unspecified chronicity Procedures XR SHOULDER COMPLETE LEFT Guillermo Miranda MD [address] [place] [address] Phone: tel: fax: Referral ID Status Reason Start Date Expiration Date Visits Re quested Visits Authorized [id number] Closed 09/18/2024 1 1 Encounter Details Date Type Department Care Team (Latest Contact Info) Description 10/01/2024 8:56 AM PATIENT SERVICE SPECIALIST - 10/01/2024 11:59 PM PATIENT SERVICE SPECIALIST [facility] [address] [place] [address] Guillermo Miranda MD [address] [place] [address] Discharge Disposition: Discharged to home or Selfcare [...] Description 12/11/2024 9:15 AM CDT Office Visit [facility] - [facility] [address] [place] [address] Jace Rose MD [address] [place] [address] documented as of this encounter Procedures Procedure Name Priority Date/Time Associated Diagnosis Comments XR SHOULDER COMPLETE LEFT Routine 10/01/2024 9:09 AM PATIENT SERVICE SPECIALIST Left shoulder pain, unspecified chronicity documented in this encounter Results * XR SHOULDER COMPLETE LEFT (10/01/2024 9:09 AM PATIENT SERVICE SPECIALIST) Anatomical Region Laterality Modality UPPER EXTREMITY, shoulder Left Digita l Radiography 10/01/2024 9:58 AM PATIENT SERVICE SPECIALIST Impressions 10/01/2024 10:01 AM PATIENT SERVICE SPECIALIST IMPRESSION: Degenerative changes of the left shoulder without definite evidence of acute displaced fracture or dislocation. Narrative 10/01/2024 10:01 AM PATIENT SERVICE SPECIALIST EXAM DESCRIPTION: XR SHOULDER COMPLETE LEFT REASON [...] AM T: ??10/01/2024 9:58 AM Report ID: [id number] Reading Location: ??[id number] Procedure Note Monroe Alberto DO - 10/01/2024 [...] Monroe Alberto D.O. PS: PS Report ID: [id number] Reading Location: [place] [address] IMPRESSION: Degenerative changes of the left shoulder without definite evidence of acute displaced fracture or dislocation. Guillermo Miranda MD IMG DIAGNOSTIC ORDERABLES Fin al Result documented in this encounter Visit Diagnoses Diagnosis Left shoulder pain, unspecified chronicity documented in this encounter Care Teams Sales Route Driver Helper Relationship Specialty Start Date End Date Guillermo Miranda MD [address] [address] PCP - General Internal Medicine 10/30/18 Jace Rose MD [address] [place] [phone] Consulting Physician Neurology 05/30/22 Sp Leary MD [address] [place] [address] Consulting Physician Medical Oncology 09/17/23 documented as of this encounter
--- OUTSIDE RECORDS SUMMARY | 2024-10-03 16:21 | XMS_ITS | Encounter Summary ---
Author Organization [facility] Address [address] [facility] [place] [address] Phone Care Team Providers Care Control Supervisor Name Role Phone Guillermo Miranda MD Primary Care Provider [phone] Jace Rose MD Unavailable [phone] Sp Leary MD Unavailable [phone] Reason for Visit * Reason Comments Medication Refill Encounter Details Date Type Department Care Team (Late st Contact Info) Description 06/07/2022 Refill [facility] - Neurology [facility] [address] [place] [address] Jace Rose MD [address] [place] [address] Medication Refill Social History Tobacco [...] 12/11/2024 9:15 AM CDT Office Visit [facility] - Neurology [facility] [address] [place] [address] Jace Rose MD [address] [place] [address] documented as of this encounter Visit Diagnoses Not on filedocumented in this encounter Care Teams Control Supervisor Relationship Specialty Start Date End Date Guillermo Miranda MD [address] [place], [place] [phone] PCP - General Internal Medicine 10/30/18 Jace Rose MD [address] [place] [address] Consulting Physician Neurology 05/30/22 Sp Leary MD [address] [place] [address] Consulting Physician Medical Oncology 09/17/23 documented as of this encounter
--- OUTSIDE RECORDS SUMMARY | 2024-10-03 16:21 | XMS_ITS | Encounter Summary ---
Author Organization [facility] Address [address] [facility] [place] [address] Phone Care Team Providers Care Gimp Buttonhole Machine Operator Name Role Phone Guillermo Miranda MD Primary Care Provider Jace Rose MD Unavailable [phone] Sp Leary MD Unavailable [phone] Reason for Visit * Reason Comments Medication Refill Encounter Details Date Type Department Care Team (Late st Contact Info) Description 08/17/2023 Refill [facility] [address] [place] [phone] Jace Rose MD [address] [place] [address] Medication Refill Social History Tobacco [...] Visit [facility] - Neurology [facility] [address] [place] [address] Jace Rose MD [address] [place] [address] documented as of this encounter Visit Diagnoses Not on filedocumented in this encounter Care Teams Gimp Buttonhole Machine Operator Relationship Specialty Start Date End Date Guillermo Miranda MD [address] [place] [address] PCP - General Internal Medicine 10/30/18 Jace Roes MD [address] [place] [address] Consulting Physician Neurology 05/30/22 Sp Leary MD [address] [place] [address] Consulting Physician Medical Oncology 09/17/23 documented as of this encounter
--- OUTSIDE RECORDS SUMMARY | 2024-10-03 16:21 | XMS_ITS ---
Author Organization [facility] Address [address] [facility], [address] [address] Phone Care Team Providers Care Space And Missile Operations Spacelift Name Role Phone Guillermo Miranda MD Primary Care Provider [phone] Jace Rose MD Unavailable [phone] pS Leary MD Unavailable [phone] Active Problems Problem Noted Date Diagnosed Date [...]
--- OUTSIDE RECORDS SUMMARY | 2024-10-03 16:21 | XMS_ITS | Clinical Summary ---
Author Organization [facility] Address [address] [facility] [address], [address] [address] Phone Care Team Providers Care Rn Operating Room Name Role Phone Guillermo Miranda MD Primary Care Provider [phone] Jace Rose MD Unavailable [phone] Sp Leary MD Unavailable [phone] Allergies No known active allergies Medications rosuvastatin [...] Department Care Team Description 10/01/2024 8:56 AM MEASUREMENT AND SENSING TECHNICIAN - 10/01/2024 11:59 PM MEASUREMENT AND SENSING TECHNICIAN Hospital Encounter [facility] Diagnostic Radiology [address] [place] [address] Guillermo Miranda MD Discharge Disposition: Discharged to home or Selfcare 10/01/2024 Travel 09/18/2024 Telephone [facility]ology [facility] [address] [place] [address] Brunilda Doshi APRN, MANAGER INTERNET 09/18/2024 Transcribe [facility] 1 [place] [address] Guillermo Miranda MD Left shoulder pain, unspecified [...] Visit [facility] - Neurology [facility] [address] [place] [address] Jace Rose MD [address] [place] [address] Health Maintenance Due Date Last Done Comments [...] this topic Medical Devices Implanted Type Area Driver Education Road Instructor Device Identifier Shelf Expiration Date Model / Serial / Lot Port Powerport Clearvue Isp Implantable W/8fr Folyurethane Catheter - [id number] Implanted:Qty: 1 on 11/08/2018 by Stuart Gonzalez MD at [facility] IMPLANT Right: Chest [employer] 01/08/2020 [id number] / [id number] / [id number] Procedures Procedure Name Priority Date/Time Associated Diagnosis Comments XR SHOULDER COMPLETE LEFT Routine 10/01/2024 9:09 AM MEASUREMENT AND SENSING TECHNICIAN Left shoulder pain, unspecified chronicity PSA SCREEN Routine 02/26/2023 10:37 AM CDT Enlarged prostate Encounter for screening for malignant neoplasm of prostate from Last 3 Months or Most Recently Relevant to Health Maintenance Results * XR SHOULDER COMPLETE LEFT (10/01/2024 9:09 AM MEASUREMENT AND SENSING TECHNICIAN) Anatomical Region Laterality Modality UPPER EXTREMITY, shoulder Left Digita l Radiography 10/01/2024 9:58 AM MEASUREMENT AND SENSING TECHNICIAN Impressions 10/01/2024 10:01 AM MEASUREMENT AND SENSING TECHNICIAN IMPRESSION: Degenerative changes of the left shoulder without definite evidence of acute displaced fracture or dislocation. Narrative 10/01/2024 10:01 AM MEASUREMENT AND SENSING TECHNICIAN EXAM DESCRIPTION: XR SHOULDER COMPLETE LEFT [...] AM T: ??10/01/2024 9:58 AM Report ID: [id number] Reading Location: ??[id number] Procedure Note Monroe Alberto DO - 10/01/2024 [...] Monroe Alberto D.O. PS: PS Report ID: [id number] Reading Location: [id number] IMPRESSION: Degenerative changes of the left shoulder without definite evidence of acute displaced fracture or dislocation. Guillermo Miranda MD IMG DIAGNOSTIC ORDERABLES Fin al Result * PSA SCREEN (02/26/2023 10:37 AM CDT) PSA SCREEN, TOTAL 0.86 <=4.00 ng/mL 02/26/2023 11:44 AM CDT [facility] Blood Venipuncture / Unknown 02/26/2023 10:37 AM CDT 02/26/2023 10:44 AM CDT Sp Leary MD CHEMISTRY ORDERABLES Fin al Result [facility] [address] [place] [address] from Last 3 Months or Most Recently Relevant to Health Maintenance Insurance MEDICARE C [facility] Advance Directives * Full Code (Latest Code Status on File) Date Activated Date Inactivated Comments 10/10/2018 2:13 PM 10/10/2018 6:11 PM CPR-Full Pan atment: FULL ARREST: Attempt Resuscitation/CPR wit intubation and mechanical ventilation. PRE-ARREST: Use entire range of life support measures to stabilize the patient. Care Teams Rn Operating Room Relationship Specialty Start Date End Date Guillermo Miranda MD [address] [place] [address] PCP - General Internal Medicine 10/30/18 Jace Rose MD [address] [place] [address] Consulting Physician Neurology 05/30/22 Sp Leary MD [address] [place] [address] Consulting Physician Medical Oncology 09/17/23
--- OUTSIDE RECORDS SUMMARY | 2024-10-03 16:21 | XMS_ITS | Clinical Summary ---
Author Organization [facility] Address [address] [place] [address]. [place] [address] [place] [address] Care Team Providers Care Pit Tanner Name Role Phone Unavailable Primary Care Provider [...]
--- OUTSIDE RECORDS SUMMARY | 2024-10-03 16:22 | XMS_ITS | Patient Health Summary ---
Author Organization [facility] Address [address] [facility] [place] [address] Care Team Providers Care Pain Management Specialist Name Role Phone Unavailable Primary Care Provider Unavailabl e Note from [facility],non-owned Affiliates and Associated Physician Practices is amultiple site organization consisting of ambulatory clinics and hospital sitesin [place], [place], [place] and [place]. This disclosure is being madepursuant to the Care Everywhere program and may not contain all information available regarding this patient. Last updated 18.[facility] Social History Tobacco Use Types Packs/Day Years Used Date Smoking Tobacco: Never Assessed Sex and Gender Information Value Date Recorded Sex Assigned at Not on file Gender Identity Not on file Sexual Orientation Not on file Procedures * DERMATOPATHOLOGY(Performed 01/03/2023) Results * DERMATOPATHOLOGY (01/03/2023 3:33 AM CDT) Case Report Dermatopathology Report ? Case: [id number] ? Authorizing Provider: ??Julio Welsh MD ?Collected: ? 01/03/2023 03:33 AM ? Ordering Location: ? [facility] ?Received: ?01/05/2023 06:12 AM ? Pathologist: ? Sara Reyes MD ? Specimen: ?Skin, left upper abd ? 3 12:20 PM [facility] DERMATOPATHOLOGY LABORATORY Final Diagnosis Specimen A. SKIN, left upper abd: COMPOUND MELANOCYTIC NEVUS, IRRITATED AND INFLAMED (D22.5) PRESENT AT MARGIN (see comment) 12:20 PM [facility] DERMATOPATHOLOGY LABORATORY Clinical History Nevus vs. MM. Path# [id number] 12:20 PM [facility] DERMATOPATHOLOGY LABORATORY Gross Description Specimen A: Received is one formalin filled container labeled with the patient's name and designated left upper abd. The specimen consists of a shave biopsy measuring 6x5x1 mm. Jar 0. 12:20 PM [facility] DERMATOPATHOLOGY LABORATORY Microscopic Description Specimen A. SKIN, [...] nature of the remaining lesion. 12:20 PM [facility] DERMATOPATHOLOGY LABORATORY Disclaimer An external and internal positive and negative controls are appropriate for the histochemical, immunohistochemical and immunofluorescence stain(s) in this case (if any), except where stated explicitly. The performance characteristics of the stain(s) cited in this report were developed and its performance characteristic determined by the Dermatopathology Laboratory at [facility], directed by Dr. Amarilis Mascorro. These tests need not be, and therefore are not, approved by the [place] Food and Drug Administration. The tests are used for clinical purposes. Billing Codes Specimen Charges Stain Charges 72762 1 3 12:20 PM CDT DERMATOPATHOLOGY LABORATORY Embedded Images 3 12:20 PM CDT DERMATOPATHOLOGY LABORATORY Pathology/Cytolo gy TISSUE SPECIMEN FROM SKIN / Unknown 01/03/2023 3:33 AM CDT 01/05/2023 6:12 AM CDT Julio Welsh MD LAB - PATHOLOGY/CYTO LOGY ORDERABLES DERMATOPATHOLOGY LABORATORY [facility] - Department of Dermatology [facility] Medicine [address] [place] [address], [address] [phone]
--- OUTSIDE RECORDS SUMMARY | 2024-10-03 16:22 | XMS_ITS | Referral Summary ---
Author Organization [facility] Address [address] [place] [address] Care Team Providers Care Animal Science Instructor Name Role Phone Unavailable Primary Care Provider Unavailabl e Source Comments [facility],non-owned Affiliates and Associated Physician Practices is amultiple site organization consisting of ambulatory clinics and hospital sitesin [place], [place], [place] and [place]. This disclosure is being madepursuant to the Care Everywhere program and may not contain all information available regarding this patient. Last updated 18.[facility] Social History Tobacco Use Types Packs/Day Years Used Date Smoking Tobacco: Never Assessed Sex and Gender Information Value Date Recorded Sex Assigned at Not on file Gender Identity Not on file Sexual Orientation Not on file Plan of Treatment Not on file
--- OUTSIDE RECORDS SUMMARY | 2024-10-03 16:22 | XMS_ITS | Clinical Summary ---
Author Organization [facility] Address [address] [facility] [place] [address] Care Team Providers Care Ground Support Equipment Fitter Name Role Phone Unavailable Primary Care Provider Unavailabl e Source Comments [facility],non-owned Affiliates and Associated Physician Practices is amultiple site organization consisting of ambulatory clinics and hospital sitesin [place], [place], [place] and [place]. This disclosure is being madepursuant to the Care Everywhere program and may not contain all information available regarding this patient. Last updated 18.[facility] Social History Tobacco Use Types Packs/Day Years [...]
--- OUTSIDE RECORDS SUMMARY | 2024-10-03 16:22 | XMS_ITS | Encounter Summary ---
Author Organization [facility] Address [address] [facility] [place] [address] Care Team Providers Care Secretary Of Police Name Role Phone Unavailable Primary Care Provider Unavailabl e Encounter Details Date Type Department Care Team (Late st Contact Info) Description 01/05/2023 Lab Requisition [facility] Care DermPath Lab [address] [facility] [place] [address] Julio Welsh MD [address] [facility] [place] [address] Social History Tobacco Use Types Packs/Day [...] CDT) Case Report Dermatopathology Report ? Case: [id number] ? Authorizing Provider: ??Julio Welsh MD ?Collected: [...] LABORATORY Clinical History Nevus vs. MM. Path# [id number] 3 12:20 PM CDT DERMATOPATHOLOGY LABORATORY Gross [...] characteristic determined by the Dermatopathology Laboratory at [facility], directed by Dr. Amarliis Mascorro. These tests need not be, and therefore are not, approved by the [place] Food and Drug Administration. The tests are used for clinical purposes. Billing Codes Specimen Charges Stain Charges 07177 1 3 12:20 PM CDT DERMATOPATHOLOGY LABORATORY Embedded Images 3 12:20 PM CDT DERMATOPATHOLOGY LABORATORY Pathology/Cytolo gy TISSUE SPECIMEN FROM SKIN / Unknown 01/03/2023 3:33 AM CDT 01/05/2023 6:12 AM CDT Julio Welsh MD LAB - PATHOLOGY/CYTO LOGY ORDERABLES DERMATOPATHOLOGY LABORATORY [facility] - Department of Dermatology [address], [address] [phone] documented in this encounter Visit Diagnoses Not on filedocumented in this encounter
--- NOTE | 2024-10-03 16:29 | PC.NURSE ---
c-collar removed per dr hodgson at this time.
[2024-10-03] MEDS: ACETAMINOPHEN 500 MG TABLET 1000 MG PO (16:40)
[2024-10-03 16:56] VITALS: BP 174/89; PULSE 89; RESP 20; O2SAT 97
== END 2024-10-03 16:56 | disposition home or self-care (01) ==
PROVIDERS: Emergency Provider Emergency Medicine; PCP Internal Medicine
DX: S01.81XA Laceration without foreign body of other part of head, initial encounter (principal); M54.2 Cervicalgia; R07.81 Pleurodynia; V43.52XA Car driver injured in collision with other type car in traffic accident, initial encounter
CPT/HCPCS: 70450; 70486; 71046; 71100; 72125; 99284; L0150